=== PATIENT | male | born 1955 | race Hispanic/Latino ===

== ENCOUNTER 2016-08-12 02:34 | Observation (INO) | payer MEDICAID ==
[2016-08-12 02:34] VITALS: PULSE 66
[2016-08-12 02:44] VITALS: BMI 38.2
--- NOTE | 2016-08-12 02:52 | ED PDOC ---
Arrival/HPI - General Time Seen by Provider: 08/12/16 02:35 Historian: Patient, Other (Friend) - History of Present Illness Narrative History of Present Illness (Text): 08/12/16 02:51 Jose Aguillon is a 61 year old male, whose past medical history includes atrial fibrillation (on Xarelto), pneumonia, CHF, hypertension, CAD, and prostate cancer, who presents to the Emergency department brought in by EMS for near- syncope tonight. Patient states he was sitting on the toilet prior to arrival when he began feeling very flushed, dizzy, and near-syncopal. Friend notes patient has been experiencing dyspnea on exertion for the past few days. Patient denies any chest pain, nausea, vomiting, diarrhea, back pain, neck pain , headache, vision changes, focal neurological deficits, trauma/fall, or any other complaints. PMD: Dr. Sarbjit Payne Time/Duration: Prior to Arrival Symptom Onset: Sudden Activities at Onset: Light Context: Sitting, Home Past Medical History - Provider Review Nursing Documentation Reviewed: Yes - Past History Past History: No Previous - Tetanus Immunization Tetanus Immunization: Unknown - Cardiac Hx Cardiac Disorders: Yes Hx Atrial Fibrillation: Yes - Pulmonary Hx Pneumonia: Yes (MAR 2013 AND CHILDHOOD) - Neurological Hx Paralysis: No - Hematological/Oncological Hx Blood Transfusions: No - Musculoskeletal/Rheumatological Hx Musculoskeletal Disorders: No - Psychiatric Hx Emotional Abuse: No Hx Physical Abuse: No Hx Substance Use: No - Surgical History Hx Cardiac Catheterization: Yes (APR 2012 ) Hx Tonsillectomy: Yes (CHILDHOOD) Other/Comment: CARDIAC ABLATION APR 2013 COLONOSCOPY EGD - Anesthesia Hx Anesthesia Reactions: No Hx Malignant Hyperthermia: No - Suicidal Assessment Feels Threatened In Home Enviroment: No Family/Social History - Physician Review Nursing Documentation Reviewed: Yes Family/Social History: No Known Family HX Smoking Status: Never Smoked Hx Alcohol Use: No Hx Substance Use: No Hx Substance Use Treatment: No Allergies/Home Meds Allergies/Adverse Reactions: Allergies Sulfa (Sulfonamide Antibiotics) Allergy (Severe, Verified 05/13/15 09:09) ANAPHYLAXIS Home Medications: Home Meds Medication Instructions Recorded Confirmed Atorvastatin Calcium 40 mg PO DAILY 08/12/16 08/12/16 Carvedilol [Coreg] 25 mg PO BID 08/12/16 08/12/16 Ergocalciferol (Vitamin D2) 50,000 unit PO QWK 08/12/16 08/12/16 [Vitamin D2] Furosemide [Lasix] 20 mg PO 2XW 08/12/16 08/12/16 Lisinopril [Zestril] 40 mg PO DAILY 08/12/16 08/12/16 Rivaroxaban [Xarelto] 20 mg PO DAILY 08/12/16 08/12/16 Review of Systems - Physician Review All systems were reviewed & negative as marked: Yes - Review of Systems Constitutional: Normal. absent: Fevers Eyes: Normal ENT: Normal Cardiovascular: PANDYA, Other (+near-syncopal) Gastrointestinal: Normal. absent: Abdominal Pain, Diarrhea, Nausea, Vomiting Genitourinary Male: Normal. absent: Dysuria, Frequency, Hematuria, Urinary Output Changes Musculoskeletal: Normal. absent: Back Pain, Neck Pain Skin: Normal. absent: Rash Neurological: Dizziness. absent: Headache Endocrine: Normal Hemo/Lymphatic: Normal Psychiatric: Normal Physical Exam Vital Signs Reviewed: Yes Vital Signs Temp Pulse Resp BP Pulse Ox 08/12/16 04:30 73 16 113/64 96 08/12/16 02:43 98 F 70 16 126/56 L 95 Temperature: Afebrile Blood Pressure: Normal Pulse: Regular Respiratory Rate: Normal Appearance: Positive for: Well-Appearing, Non-Toxic, Comfortable Pain Distress: None Mental Status: Positive for: Alert and Oriented X 3 - Systems Exam Head: Present: Atraumatic, Normocephalic Pupils: Present: PERRL Extroacular Muscles: Present: EOMI Conjunctiva: Present: Normal Mouth: Present: Moist Mucous Membranes Neck: Present: Normal Range of Motion Respiratory/Chest: Present: Clear to Auscultation, Good Air Exchange. No: Respiratory Distress, Accessory Muscle Use Cardiovascular: Present: Normal S1, S2, Irregular Rhythm (Irregular, regular). No: Murmurs Abdomen: Present: Normal Bowel Sounds. No: Tenderness, Distention, Peritoneal Signs Back: Present: Normal Inspection Upper Extremity: Present: Normal Inspection. No: Cyanosis, Edema Lower Extremity: Present: Normal Inspection. No: Edema Neurological: Present: GCS=15, CN II-XII Intact, Speech Normal Skin: Present: Warm, Dry, Normal Color. No: Rashes Psychiatric: Present: Alert, Oriented x 3, Normal Insight, Normal Concentration Medical Decision Making ED Course and Treatment: 08/12/16 02:51 Impression: 61 year old male brought in by EMS s/p near-syncopal episode ACCOUNTS RECEIVABLE ASSOCIATE. Differential Diagnosis include but are not limited to: near-syncope vs. ACS vs. electrolyte abnormality vs. atrial fibrillation Plan: -- CT Head w/o contrast -- EKG -- Chest X-ray -- Labs, cardiac enzymes, BNP -- Reassess and disposition Prior Visits: Notes and results from previous visits were reviewed. Progress Notes: Reviewed EKG, a fib at [address]pm[address] LBBB. Non-specific ST/T wave changes. 08/12/16 04:23 Reviewed radiology, Chest X-ray shows no active disease. CT Head shows: No fractures. No intracranial hemorrhage. Clinical correlation for possibility of proptosis. No abnormality suspicious for acute stroke by noncontrast head CT. If there is clinical suspicion for stroke, please note that other modalities are considered to be more sensitive than noncontrast head CT. 08/12/16 04:55 Case discussed with medical coordinator pesticide use educational assistant, who is aware and agrees with plan. Case discussed with Dr. Noyola, who is aware and agrees with plan. Accepts pt in to hospitalist service. Pt will go to Telemetry observation for near-syncope. Pt is no acute distress. Discussed results and hospital observation with pt, who is aware and verbalizes understanding. - Lab Interpretations Lab Results: 08/12/16 03:00 08/12/16 03:00 Lab Results 08/12/16 03:00: WBC 7.8, RBC 5.27, Hgb 15.7, Hct 43.8, MCV 83.1, MCH 29.8, MCHC 35.8, RDW 13.5, Plt Count 199, MPV 10.2, PT 14.0 H, INR 1.30 H, APTT 27.8, Sodium 139, Potassium 3.6, Chloride 103, Carbon Dioxide 22, Anion Gap 18, BUN 14 , Creatinine 0.8, Est GFR ( Amer) > 60, Est GFR (Non-Af Amer) > 60, Random Glucose 133 H, Calcium 9.2, Total Bilirubin 1.5 H, AST 21, ALT 34, Alkaline Phosphatase 78, Lactate Dehydrogenase 362, Total Creatine Kinase 74, Troponin I 0.01, NT-Pro-B Natriuret Pep 1490 H, Total Protein 7.4, Albumin 4.1, Globulin 3.4, Albumin/Globulin Ratio 1.2 I have reviewed the lab results: Yes - RAD Interpretation Narrative RAD Interpretations (Text): Chest X-ray shows no active disease. CT Head shows: Brain: No hemorrhage. Mild periventricular hypoattenuation suggesting white matter disease. No edema. Ventricles: Unremarkable. No ventriculomegaly. Bones/joints: Unremarkable. No acute fracture. Soft tissues: Unremarkable. Sinuses: Unremarkable as visualized. No acute sinusitis. Mastoid air cells: Unremarkable as visualized. No mastoid effusion. Orbits: There is suggestion of bilateral proptosis, please correlate clinically. IMPRESSION: No fractures. No intracranial hemorrhage. Clinical correlation for possibility of proptosis. No abnormality suspicious for acute stroke by noncontrast head CT. If there is clinical suspicion for stroke, please note that other modalities are considered to be more sensitive than noncontrast head CT. Radiology Orders: 08/12/16 02:56 HEAD W/O CONTRAST [CT] Stat 08/12/16 02:57 CHEST PORTABLE [RAD] Stat Consumer Analyst: ED Physician, Radiologist - EKG Interpretation Interpreted by ED Physician: Yes Type: 12 lead EKG - Scribe Statement The provider has reviewed the documentation as recorded by the Raphael Kingsley Provider Attestation: All medical record entries made by the Scribe were at my direction and personally dictated by me. I have reviewed the chart and agree that the record accurately reflects my personal performance of the history, physical exam, medical decision making, and the department course for this patient. I have also personally directed, reviewed, and agree with the discharge instructions and disposition. Disposition/Present on Arrival - Present on Arrival Any Indicators Present on Arrival: No History of DVT/PE: No History of Uncontrolled Diabetes: No Urinary Catheter: No History of Decub. Ulcer: No History Surgical Site Infection Following: None - Disposition Have Diagnosis and Disposition been Completed?: Yes Diagnosis: Near syncope Disposition: HOSPITALIZED Disposition Time: 05:02 Patient Plan: Observation Patient Problems: Current Active Problems Problem Status Diagnosed Near syncope Acute Condition: STABLE Referrals: Dede Payne MD [Primary Care Provider] - Follow up with primary
[2016-08-12 03:29] LABS: HEMATOCRIT 43.8 % (42.0-52.0); MEAN CELL VOLUME 83.1 fL (80.0-105.0); MEAN CORPUSCULAR HEMOGLOBIN 29.8 pg (25.0-35.0); MEAN CORPUSCULAR HGB CONC 35.8 g/dl (31.0-37.0); MEAN PLATELET VOLUME 10.2 fl (7.0-11.0); RED CELL DISTRIBUTION WIDTH 13.5 % (11.5-14.5); WHITE BLOOD COUNT 7.8 10^3/ul (4.5-11.0)
[2016-08-12 03:36] LABS: ALB/GLOB RATIO 1.2 (1.1-1.8); ALKALINE PHOSPHATASE 78 U/L (38-133); ALT/SGPT 34 U/L (7-56); AST/SGOT 21 U/L (15-59); BILIRUBIN,TOTAL 1.5 mg/dL (0.2-1.3); BLOOD UREA NITROGEN 14 mg/dL (7-21); CALCIUM 9.2 mg/dL (8.4-10.5); CARBON DIOXIDE 22 mmol/L (21-33); CHLORIDE 103 mmol/L (98-107); GFR AFRICAN-AMERICAN > 60; GLUCOSE,RANDOM 133 mg/dL (70-110); POTASSIUM 3.6 mmol/L (3.6-5.0); SODIUM 139 mmol/L (132-148); TOTAL PROTEIN 7.4 g/dL (5.8-8.3)
[2016-08-12 03:37] LABS: INR 1.3 (0.93-1.08); PARTIAL THROMBOPLASTIN TIME 27.8 Seconds (23.7-30.8)
[2016-08-12 04:11] LABS: TROPONIN I 0.01 ng/mL
--- NOTE | 2016-08-12 04:22 | CT ---
EXAM: CT Head Without Intravenous Contrast CLINICAL HISTORY: 61 years old, male; Signs and symptoms; Syncope and collapse; Additional info: Near syncope TECHNIQUE: Axial computed tomography images of the head/brain without intravenous contrast. EXAM DATE/TIME: Exam ordered 08/12/2016 2:56 AM COMPARISON: No relevant prior studies available. FINDINGS: Brain: No hemorrhage. Mild periventricular hypoattenuation suggesting white matter disease. No edema. Ventricles: Unremarkable. No ventriculomegaly. Bones/joints: Unremarkable. No acute fracture. Soft tissues: Unremarkable. Sinuses: Unremarkable as visualized. No acute sinusitis. Mastoid air cells: Unremarkable as visualized. No mastoid effusion. Orbits: There is suggestion of bilateral proptosis, please correlate clinically. IMPRESSION: No fractures. No intracranial hemorrhage. Clinical correlation for possibility of proptosis. No abnormality suspicious for acute stroke by noncontrast head CT. If there is clinical suspicion for stroke, please note that other modalities are considered to be more sensitive than noncontrast head CT.
--- NOTE | 2016-08-12 06:01 | CP.PCM.HP ---
<Aixa Quintero - Last Filed: 08/12/16 05:52> History of Present Illness - History of Present Illness History of Present Illness: 61 M with PMHx of Afib (xarelto), CHF ('12: EF - 22%), recurrent PNA, HTN, CAD and prostate ca presents to [facility] with complaints of near syncopal episode. Pt reports at approx 2:30 this morning he went to use the restroom when he began to feel cold, chills, slightly dizzy and facial flushing. He denied straining and denied loc. He was able to ambulate to the living room afterwards and rest at which point he decided to have his friends bring him to the [facility] ED for further evaluation, as he understands he has a strong cardiac history and did not want to take any chances. Total duration of symptoms was approx 3-5 minutes. Pt currently denies any complaints. He denied fever, chills, headaches , dizziness, blurry vision, lightheadedness, sob, chest pains, palpitations, abdominal pains, n/v/d/c or urinary symptoms. PMHx: Afib (xarelto), CHF ('12: EF - 22%), recurrent PNA, HTN, CAD and prostate ca s/p radiation PSHx: Cardiac ablation, colonoscopy, egd, Cardiac cath SHx: Denied tobacco abuse, admits to a 20 yr span of drinking 3-4xweek of 3-4 drinks and quit when dx with cardiac, denied illicit drug use FamHX: Dad from [place] @65yo, also had prostate cancer. Mom: colon cancer Meds: MAR reviewed Allergies: NKDA (he states he doesnt really have sulfa allergy) PMD: Dr. Navjot Payne Director Of Distribution: Dr. Palumbo ([facility]), appt on Urologist: Dr. Garcia Present on Admission - Present on Admission Any Indicators Present on Admission: No History of DVT/PE: No History of Uncontrolled Diabetes: No Urinary Catheter: No Decubitus Ulcer Present: No Review of Systems - Review of Systems Review of Systems: as per HPI otherwise negative Past Patient History - Tetanus Immunizations Tetanus Immunization: Unknown - Past Medical History & Family History Past Medical History?: Yes - Past Social History Smoking Status: Never Smoked - CARDIAC Hx Cardiac Disorders: Yes Hx Atrial Fibrillation: Yes - PULMONARY Hx Pneumonia: Yes (MAR 2013 AND CHILDHOOD) - NEUROLOGICAL Hx Paralysis: No - HEMATOLOGICAL/ONCOLOGICAL Hx Blood Transfusions: No - MUSCULOSKELETAL/RHEUMATOLOGICAL Hx Musculoskeletal Disorders: No - PSYCHIATRIC Hx Emotional Abuse: No Hx Physical Abuse: No Hx Substance Use: No - SURGICAL HISTORY Hx Cardiac Catheterization: Yes (APR 2012 ) Hx Tonsillectomy: Yes (CHILDHOOD) Other/Comment: CARDIAC ABLATION APR 2013 COLONOSCOPY EGD - ANESTHESIA Hx Anesthesia Reactions: No Hx Malignant Hyperthermia: No Meds Allergies/Adverse Reactions: Allergies Allergy/AdvReac Type Severity Reaction Status Date / Time Sulfa (Sulfonamide Allergy Severe ANAPHYLAXIS Verified 08/12/16 11:39 Antibiotics) Physical Exam - Constitutional Appears: Well, No Acute Distress - Head Exam Head Exam: ATRAUMATIC, NORMAL INSPECTION, NORMOCEPHALIC - Eye Exam Eye Exam: EOMI, Normal appearance, PERRL Pupil Exam: NORMAL ACCOMODATION, PERRL - ENT Exam ENT Exam: Mucous Membranes Moist, Normal Exam - Neck Exam Neck exam: Positive for: Normal Inspection - Respiratory Exam Respiratory Exam: Clear to Auscultation Bilateral, NORMAL BREATHING PATTERN - Cardiovascular Exam Cardiovascular Exam: REGULAR RHYTHM, +S1, +S2. absent: JVD - GI/Abdominal Exam GI & Abdominal Exam: Normal Bowel Sounds, Soft. absent: Tenderness - Extremities Exam Extremities exam: Positive for: normal inspection - Back Exam Back exam: NORMAL INSPECTION - Neurological Exam Neurological exam: Alert, CN II-XII Intact, Normal Gait, Oriented x3, Reflexes Normal - Psychiatric Exam Psychiatric exam: Normal Affect, Normal Mood - Skin Skin Exam: Dry, Intact, Normal Color, Warm Results - Vital Signs Recent Vital Signs: Last Vital Signs Temp 98 F 08/12/16 02:43 Pulse 73 08/12/16 04:30 Resp 16 08/12/16 04:30 BP 113/64 08/12/16 04:30 Pulse Ox 96 08/12/16 04:30 - Labs Result Diagrams: 08/12/16 03:00 08/12/16 03:00 Assessment & Plan - Assessment and Plan (Free Text) Assessment: 61 M with PMHx of Afib (xarelto), CHF ('12: EF - 22%), recurrent PNA, HTN, CAD and prostate ca presents to [facility] with complaints of near syncopal episode, [facility] further evaluation considering strong cardiac hx. 1. Near syncope - Hx: Afib, CHF, CAD - EKG: Afib @ 76bpm. LBBB Nonspecific ST changes, compared with previous EKGs - Last EF 21% - Echo, tsh, orthostatics, serial trops, serial ekgs - Cardio consulted, Dr. Cooney 2. HTN - Currently stable - continue home meds - continue to monitor 3. Afib - continue xarelto 4. CHF - Lasix 20mg Wed/Tue - Strict I&Os - daily weights 5. GI ppx 6. Dvt ppx seen reviewed and discussed with attending <Jazmín JAMES,Jomar - Last Filed: 08/13/16 13:59> Results - Vital Signs Recent Vital Signs: Last Vital Signs Temp 98.1 F 08/13/16 05:42 Pulse 88 08/13/16 05:42 Resp 20 08/13/16 05:42 BP 119/58 L 08/13/16 05:42 Pulse Ox 98 08/13/16 05:42 - Labs Result Diagrams: 08/13/16 07:00 08/13/16 07:00 Labs: Laboratory Results - last 24 hr 08/12/16 08/13/16 18:46 07:00 WBC 6.7 RBC 5.38 Hgb 15.7 Hct 45.5 MCV 84.6 MCH 29.2 MCHC 34.5 RDW 13.7 Plt Count 196 MPV 10.4 Gran % 62.7 Lymph % (Auto) 26.3 [place] % (Auto) 9.7 H Eos % (Auto) 1.0 L Baso % (Auto) 0.3 Gran # 4.21 Lymph # 1.8 [place] # 0.7 H Eos # 0.1 Baso # 0.02 Sodium 140 Potassium 4.5 Chloride 102 Carbon Dioxide 27 Anion Gap 16 BUN 14 Creatinine 0.9 Est GFR ( Amer) > 60 Est GFR (Non-Af Amer) > 60 Random Glucose 109 Calcium 9.5 Total Bilirubin 2.0 H AST 22 ALT 35 Alkaline Phosphatase 75 Troponin I < 0.01 D Total Protein 7.7 Albumin 4.2 Globulin 3.4 Albumin/Globulin Ratio 1.2 Attending/Attestation - Attestation I have personally seen and examined this patient.: Yes I have fully participated in the care of the patient.: Yes I have reviewed all pertinent clinical information: Yes
--- NOTE | 2016-08-12 08:22 | RAD ---
HISTORY: near syncope COMPARISON: 05/13/2015 FINDINGS: LUNGS: No active pulmonary disease. PLEURA: No significant pleural effusion identified, no pneumothorax apparent. CARDIOVASCULAR: Normal. OSSEOUS STRUCTURES: No significant abnormalities. VISUALIZED UPPER ABDOMEN: Normal. OTHER FINDINGS: None. IMPRESSION: No active disease.
[2016-08-12] MEDS: Ergocalciferol 50,000 Intl Units Cap PO SCH (10:06)
--- NOTE | 2016-08-12 15:06 | CON ---
DATE: 08/12/2016 REASON FOR CONSULTATION: Atrial fibrillation. HISTORY OF PRESENT ILLNESS: The patient is a 61-year-old white male who has history of chronic atria l fibrillation. He is being followed by a vision teacher in [place]. The patient has been on Xare lto for the past 3 years. He has a history of hypertension and prostatic cancer. He presented becau se of near syncope. The patient stated that he went to use the bathroom after midnight and he felt v urmila flushed and dizzy. The patient denies any fainting. The patient does not recall experiencing pa lpitation or chest pain. SOCIAL HISTORY: The patient is a former smoker. MEDICATIONS: Coreg 25 mg twice a day, Lasix 20 mg p.o. twice a day, Lipitor 40 mg once a day, Proton ix 40 mg subcutaneously once a day, Xarelto 20 mg once a day, Zestril 40 mg p.o. once a day. PHYSICAL EXAMINATION: GENERAL: The patient is a middle-aged male who does not appear to be in any distress. VITAL SIGNS: Blood pressure 122/82, heart rate 92, temperature 98.8, respirations 16. HEENT: Normocephalic. NECK: No JVD. CHEST: Clear. HEART: S1, S2 regular. EXTREMITIES: No edema or calf tenderness. LABORATORY DATA: CBC is within normal limits. INR is 1.3, PTT 27.8. SMA-7 is within normal limits except for glucose of 133. ProBNP is 1490. TSH level is within normal limits. Head CT scan without contrast: No abnormality suspicious of acute stroke. Chest x-ray revealed mild cardiomegaly. EKG revealed atrial fibrillation with a heart rate 76, left bundle branch block. Cardiac catheterization performed in 03/2012 revealed 80% stenosis of the proximal left anterior descending and end-stage ca rdiomyopathy. He was given the option of elective PCI. However, the patient is unaware of any inter vention that was done for his coronary arteries. Two sets of troponins are not elevated. ASSESSMENT: 1. Chronic atrial fibrillation. 2. Cardiomyopathy. 3. History of coronary artery disease. RECOMMENDATIONS: Continue Coreg 25 mg once a day, Lasix 20 mg p.o. twice a day, Lipitor 40 mg once a day, Xarelto 20 mg once a day, Zestril at 40 mg once a day. Obtain an echocardiogram. Giles Cooney MD cc: [id number] TT: 08/12/2016 15:06:32 Confirmation # [id number] Dictation # [id number] rn
--- NOTE | 2016-08-12 15:32 | CARD ---
APPROVED REPORT EKG Measurement Heart [id number] <Conclusion> Atrial fibrillation Left bundle branch block Abnormal ECG
[2016-08-12] MEDS ORDERED: Pneumococcal 23-Valent Vaccine IM ONE (17:20)
[2016-08-12 21:09] VITALS: RESP 20
[2016-08-13 05:42] VITALS: BP 119/58; TEMP 98.1; O2SAT 98
[2016-08-13 07:17] LABS: ADD MANUAL DIFF? NO
[2016-08-13 07:29] LABS: BASO # 0.02 K/mm3 (0.0-2.0); BASO % 0.3 % (0.0-3.0); EOS # 0.1 (0.0-0.7); GRAN # 4.21 (1.4-6.5); GRAN % 62.7 % (50.0-68.0); HEMATOCRIT 45.5 % (42.0-52.0); LYMPH # 1.8 (1.2-3.4); LYMPH % 26.3 % (22.0-35.0); MEAN CELL VOLUME 84.6 fL (80.0-105.0); MEAN CORPUSCULAR HEMOGLOBIN 29.2 pg (25.0-35.0); MEAN CORPUSCULAR HGB CONC 34.5 g/dl (31.0-37.0); MEAN PLATELET VOLUME 10.4 fl (7.0-11.0); MONO # 0.7 (0.1-0.6); MONO % 9.7 % (1.0-6.0); PLATELET COUNT 196 10^3/uL (120.0-450.0); RED CELL DISTRIBUTION WIDTH 13.7 % (11.5-14.5); WHITE BLOOD COUNT 6.7 10^3/ul (4.5-11.0)
[2016-08-13] MEDS ORDERED: Pantoprazole 40 mg EC Tab PO SCH (07:30)
[2016-08-13 07:49] LABS: ALB/GLOB RATIO 1.2 (1.1-1.8); ALKALINE PHOSPHATASE 75 U/L (38-133); ALT/SGPT 35 U/L (7-56); AST/SGOT 22 U/L (15-59); BLOOD UREA NITROGEN 14 mg/dL (7-21); CALCIUM 9.5 mg/dL (8.4-10.5); CARBON DIOXIDE 27 mmol/L (21-33); CHLORIDE 102 mmol/L (95-110); GFR AFRICAN-AMERICAN > 60; GLUCOSE,RANDOM 109 mg/dL (70-110); POTASSIUM 4.5 mmol/L (3.6-5.0); SODIUM 140 mmol/L (132-148); TOTAL PROTEIN 7.7 g/dL (5.8-8.3)
[2016-08-13] MEDS: Ergocalciferol 50,000 Intl Units Cap PO SCH (09:34)
--- NOTE | 2016-08-13 12:43 | CARD ---
APPROVED REPORT EXAM: Two-dimensional and M-mode echocardiogram with Doppler and color Doppler. INDICATION NEAR SYNCOPE 2D DIMENSIONS Left Atrium (2D)4.5 (1.6-4.0cm)IVSd1.4 (0.7-1.1cm) LVDd5.2 (3.9-5.9cm)PWd1.4 (0.7-1.1cm) LVDs4.5 (2.5-4.0cm)FS (%) 12.5 % LVEF (%)26.8 (>50%) M-Mode DIMENSIONS Aortic Root3.00 (2.2-3.7cm)Aortic Cusp Exc.1.50 (1.5-2.0cm) Aortic Valve AoV Peak Rjnjymcj515.0cm/Emilia Peak GR.13mmHg Mitral Valve E/A ratio0.0 TDI E/Lateral E'0.0E/Medial E'0.0 Pulmonary Valve PV Peak Xahmwbtq18.0cm/sPV Peak Grad.2mmHg Tricuspid Valve TR Peak [id number]/sRAP [id number] Peak Gr.47mmHg [id number] LEFT VENTRICLE The Left Ventricle is borderline dilated. There is mild concentric left ventricular hypertrophy. The systolic function is severely impaired. Sever Septal an Apical hypokinesis No left ventricle thrombus noted on this study. RIGHT VENTRICLE The right ventricle is normal size. There is normal right ventricular wall thickness. The right ventricular systolic function is normal. ATRIA The left atrium is moderately dilated. The right atrium is mildly dilated. AORTIC VALVE The aortic valve is not well visualized. No aortic regurgitation is present. MITRAL VALVE The mitral valve is mildly thickened. Mitral regurgitation is moderate. TRICUSPID VALVE There is moderate tricuspid regurgitation. There is moderate pulmonary hypertension. GREAT VESSELS The aortic root is normal in size. The IVC was not visualized. PERICARDIAL EFFUSION There is no pericardial effusion. <Conclusion> The Left Ventricle is borderline dilated. There is mild concentric left ventricular hypertrophy. The systolic function is severely impaired. Sever Septal an Apical hypokinesis There is moderate tricuspid regurgitation. There is moderate pulmonary hypertension. Mitral regurgitation is moderate.
--- NOTE | 2016-08-13 15:52 | CP.PCM.PN ---
<Snehal Mullen - Last Filed: 08/13/16 16:01> Subjective - Date & Time of Evaluation Date of Evaluation: 08/13/16 Time of Evaluation: 08:10 - Subjective Subjective: Pt seen and evaluated at the bedside. Pt denies CP, SWENSON, SOB, abdominal pain, urinary symptoms. Last BM yesterday was without blood and was not diarrhea or constipation. Afebrile overnight. Objective - Vital Signs/Intake and Output Vital Signs (last 24 hours): Temp Pulse Resp BP Pulse Ox 98.1 F 88 20 119/58 L 98 08/13/16 05:42 08/13/16 05:42 08/13/16 05:42 08/13/16 05:42 08/13/16 05:42 Intake and Output: 08/13/16 08/13/16 06:59 18:59 Intake Total 600 1020 Balance 600 1020 - Medications Medications: Current Medications Atorvastatin Calcium (Lipitor) 40 mg PO DAILY [facility] Last Admin: 08/13/16 09:33 Dose: 40 mg Carvedilol (Coreg) 25 mg PO BID [facility] Last Admin: 08/13/16 09:33 Dose: 25 mg Ergocalciferol (Drisdol 50,000 Intl Units Cap) 1 cap PO QWK [facility] Last Admin: 08/13/16 09:34 Dose: 1 cap Furosemide (Lasix) 20 mg PO 2XW [facility] Lisinopril (Zestril) 40 mg PO DAILY [facility] Last Admin: 08/13/16 09:34 Dose: 40 mg Pantoprazole Sodium (Protonix Ec Tab) 40 mg PO ACB [facility] Last Admin: 08/13/16 07:39 Dose: 40 mg Rivaroxaban (Xarelto) 20 mg PO DAILY [facility] PRN Reason: Protocol Last Admin: 08/13/16 09:33 Dose: 20 mg - Labs Labs: 08/13/16 07:00 08/13/16 07:00 PT 14.0 Seconds (9.9-11.8) H 08/12/16 03:00 INR 1.30 (0.93-1.08) H 08/12/16 03:00 APTT 27.8 Seconds (23.7-30.8) 08/12/16 03:00 - Constitutional Appears: Non-toxic, No Acute Distress - Head Exam Head Exam: ATRAUMATIC, NORMOCEPHALIC - Eye Exam Eye Exam: EOMI, Normal appearance - Respiratory Exam Respiratory Exam: Clear to Ausculation Bilateral, NORMAL BREATHING PATTERN - Cardiovascular Exam Cardiovascular Exam: +S1, +S2. absent: Bradycardia - GI/Abdominal Exam GI & Abdominal Exam: Soft. absent: Tenderness - Exam External exam: absent: Ecchymosis, Erythema - Extremities Exam Extremities Exam: Normal Capillary Refill. absent: Tenderness - Neurological Exam Neurological Exam: Alert, Awake - Psychiatric Exam Psychiatric exam: Normal Affect, Normal Mood - Skin Skin Exam: Intact, Normal Color Assessment and Plan - Assessment and Plan (Free Text) Plan: 61 M with PMHx of Afib (xarelto), CHF ('12: EF - 22%), recurrent PNA, HTN, CAD and prostate ca presents [place] [facility] with complaints of near syncopal episode, admitted to tele obs for further evaluation considering strong cardiac hx. 1. Near syncope - Hx: Afib, CHF, CAD - EKG: Afib @ 76bpm. LBBB Nonspecific ST changes, compared with previous EKGs - Last EF 21%, new EF 25% - tsh (wnl), orthostatics positive (sit 146/80, stand 133/101, supine 129/77), trop neg x3 - Cardio consulted, Dr. Cooney -EP study tomorrow 2. HTN - Currently stable - continue home meds - continue to monitor 3. Afib - continue xarelto 4. CHF - Lasix 20mg Wed/Tue - Strict I&Os - daily weights 5. GI ppx 6. Dvt ppx seen reviewed and discussed with attending <Joaquin Coronado - Last Filed: 08/13/16 16:32> Objective - Vital Signs/Intake and Output Vital Signs (last 24 hours): Temp Pulse Resp BP Pulse Ox 98.1 F 88 20 119/58 L 98 08/13/16 05:42 08/13/16 05:42 08/13/16 05:42 08/13/16 05:42 08/13/16 05:42 Intake and Output: 08/13/16 08/13/16 06:59 18:59 Intake Total 600 1020 Balance 600 1020 - Medications Medications: Current Medications Atorvastatin Calcium (Lipitor) 40 mg PO DAILY [facility] Last Admin: 04/21/17 09:33 Dose: 40 mg Carvedilol (Coreg) 25 mg PO BID [facility] Last Admin: 08/13/16 09:33 Dose: 25 mg Ergocalciferol (Drisdol 50,000 Intl Units Cap) 1 cap PO QWK [facility] Last Admin: 08/13/16 09:34 Dose: 1 cap Furosemide (Lasix) 20 mg PO 2XW [facility] Lisinopril (Zestril) 40 mg PO DAILY [facility] Last Admin: 08/13/16 09:34 Dose: 40 mg Pantoprazole Sodium (Protonix Ec Tab) 40 mg PO ACB [facility] Last Admin: 08/13/16 07:39 Dose: 40 mg Rivaroxaban (Xarelto) 20 mg PO DAILY [facility] PRN Reason: Protocol Last Admin: 08/13/16 09:33 Dose: 20 mg - Labs Labs: 08/13/16 07:00 08/13/16 07:00 PT 14.0 Seconds (9.9-11.8) H 08/12/16 03:00 INR 1.30 (0.93-1.08) H 08/12/16 03:00 APTT 27.8 Seconds (23.7-30.8) 08/12/16 03:00 Attending/Attestation - Attestation I have personally seen and examined this patient.: Yes I have fully participated in the care of the patient.: Yes I have reviewed all pertinent clinical information, including history, physical exam and plan: Yes Notes (Text): 08/13/16 16:28 61 year old male with past medical history of CHF, chronic afib, hypertension and CAD who presented after near syncopal episode at home. Cardiac enzymes were negative. Orthostatics were positive. Echocardiogram showed severely impaired systolic function, severe septal and apical hypokinesis, moderate TR/MR , moderate pulmonary hypertension. Case was discussed with Dr. Cooney who has recommended for EP evaluation. He is on xarelto and coreg for chronic afib. Joaquin Coronado MD Hospitalist.
[2016-08-13 17:36] VITALS: PULSE 35
--- NOTE | 2016-08-13 18:33 | PN ---
DATE: 08/13/2016 The patient denies chest pain or dizziness. PHYSICAL EXAMINATION: VITAL SIGNS: Blood pressure 119/58, heart rate 80, respiration 20, and temperature 98.1. There is ____ rapid atrial fibrillation at times up to 150 and 160 beats per minute. CHEST: Clear. HEART: S1, S2 regular. S3 gallop is noted. ABDOMEN: Soft. EXTREMITIES: Trace leg edema. LABORATORIES: Hemoglobin and hematocrit, white count and platelet count are within normal limit. Today's SMA-7 is within normal limit. Total bilirubin is 2.0. Three sets of troponins are within normal limit. Echocardiographic study revealed severely impaired left ventricular systolic function with severe septal and apical hypokinesis, moderate mitral insufficiency and moderate pulmonary hypertension. ASSESSMENT: 1. Cardiomyopathy. 2. Chronic atrial fibrillation. 3. Consider underlying ischemic heart disease. RECOMMENDATIONS: Continue Coreg 25 mg twice a day, Lasix 20 mg once a day, Lipitor at 40 mg once a day, Zestril 40 mg once a day, Xarelto 20 mg once a day. Start Aldactone 25 mg once a day. 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 The case was discussed with Dr. Coronado. Giles Cooney MD cc: [id number] TT: 08/13/2016 18:32:06 Confirmation # [id number] Dictation # [id number] nithya DENNIS
== END 2016-08-13 19:04 | disposition left against medical advice (07) ==
LOC: ED 02:34 → ERH 04:57 → 2RSO 15:25
PROVIDERS: ADMIT Hospitalist; ATTEND Internal Medicine
DX: R55 Syncope and collapse (principal); I48.2 Chronic atrial fibrillation; I11.0 Hypertensive heart disease with heart failure; I50.9 Heart failure, unspecified; I27.2 Other secondary pulmonary hypertension; I25.10 Atherosclerotic heart disease of native coronary artery without angina pectoris; I42.9 Cardiomyopathy, unspecified; Z79.01 Long term (current) use of anticoagulants; Z85.46 Personal history of malignant neoplasm of prostate; Z87.01 Personal history of pneumonia (recurrent); Z92.3 Personal history of irradiation; Z87.891 Personal history of nicotine dependence; Z80.42 Family history of malignant neoplasm of prostate; Z80.0 Family history of malignant neoplasm of digestive organs
CPT/HCPCS: 36415; 70450; 71010; 80053; 82550; 83615; 83880; 84443; 84484; 85025; 85027; 85610; 85730; 93005; 93306; 96374; 97116; 97161; 99285; C9113; G0378; G8978; G8979; G8980

== ENCOUNTER 2016-09-21 11:30 | Emergency (ER) | payer MEDICAID ==
[2016-09-21 11:30] VITALS: PULSE 66
[2016-09-21 11:48] VITALS: BMI 36.5
[2016-09-21 11:51] VITALS: TEMP 98.8
--- NOTE | 2016-09-21 12:20 | ED PDOC ---
Arrival/HPI - General Chief Complaint: Lower Extremity Problem/Injury Time Seen by Provider: 09/21/16 12:15 Historian: Patient - History of Present Illness Narrative History of Present Illness (Text): 09/21/16 12:07 A 61 year old male, whose past medical history includes atrial fibrillation (on Xarelto), pneumonia, CHF, hypertension, CAD, and prostate cancer, presents to the emergency department for evaluation of redness and pain to the right foot. Patient reports yesterday evening he stubbed his foot against the bed, after which he was fine, but this morning he noticed the redness and developed pain. He states he did not see any breakage in the skin after stubbing the foot. He denies any fever, nausea, vomiting, dizziness, headache, or any other complaints at this time. He denies dyspnea or chest pain. PMD: Dr. Payne Time/Duration: Other (12-18 hours) Symptom Onset: Sudden Symptom Course: Unchanged Quality: Other Activities at Onset: Rest Context: Home Past Medical History - Provider Review Nursing Documentation Reviewed: Yes - Past History Past History: No Previous - Tetanus Immunization Tetanus Immunization: Unknown - Cardiac Hx Cardiac Disorders: Yes (CAD) Hx Congestive Heart Failure: Yes Hx Hypertension: Yes - Pulmonary Hx Respiratory Disorders: Yes Hx Pneumonia: Yes ( A CHILD .HAD PNA 5 X) - Neurological Hx Neurological Disorder: No - HEENT Hx HEENT Disorder: No - Renal Hx Renal Disorder: No - Endocrine/Metabolic Hx Endocrine Disorders: No - Hematological/Oncological Hx Blood Disorders: No - Integumentary Hx Dermatological Disorder: No - Musculoskeletal/Rheumatological Hx Musculoskeletal Disorders: Yes Hx Falls: No - Gastrointestinal Hx Gastrointestinal Disorders: No - Genitourinary/Gynecological Hx Genitourinary Disorders: Yes (HYDROCELE) Hx Prostate Problems: Yes (PROSTATE CA WITH 44 T X OF RADIATION) - Psychiatric Hx Psychophysiologic Disorder: No Hx Emotional Abuse: No Hx Physical Abuse: No Hx Substance Use: No - Surgical History Hx Cardiac Catheterization: Yes (APR 2012 ) Other/Comment: CARDIAC ABLATION APR 2013 COLONOSCOPY EGD - Anesthesia Hx Anesthesia Reactions: No Hx Malignant Hyperthermia: No - Suicidal Assessment Feels Threatened In Home Enviroment: No Family/Social History - Physician Review Nursing Documentation Reviewed: Yes Family/Social History: No Known Family HX, Unknown Family HX Smoking Status: Never Smoked Hx Alcohol Use: No Hx Substance Use: No Hx Substance Use Treatment: No Allergies/Home Meds Allergies/Adverse Reactions: Allergies Sulfa (Sulfonamide Antibiotics) Allergy (Severe, Verified 09/21/16 11:48) ANAPHYLAXIS Home Medications: Home Meds Medication Instructions Recorded Confirmed Carvedilol [Coreg] 25 mg PO BID 08/12/16 08/12/16 Ergocalciferol (Vitamin D2) 50,000 unit PO QWK 08/12/16 08/12/16 [Vitamin D2] Review of Systems - Physician Review All systems were reviewed & negative as marked: Yes - Review of Systems Constitutional: absent: Fevers Gastrointestinal: absent: Nausea, Vomiting Musculoskeletal: Other (right foot redness and pain) Neurological: absent: Headache, Dizziness Physical Exam - Physical Exam Narrative Physical Exam (Text): Constitutional: No acute distress. Head: Normocephalic. Atraumatic. Eyes: PERRL. ENT: Moist mucous membranes. Neck: Supple. Cardiovascular: Irregular, Tachycardia Chest: No tenderness. Respiratory: Clear to auscultation bilaterally. GI: Soft. Nontender. Nondistended. Back: No CVA tenderness. Musculoskeletal: Area of erythema to the right medial aspect of the foot with tenderness on palpation, which is blanching but no fluctuance or drainage. DP 2+ . Full range of motion to the right foot and toes. Skin: No rash. Neurologic: Alert, no focal deficit. Vital Signs Reviewed: Yes Vital Signs Temp Pulse Resp BP Pulse Ox 09/21/16 13:44 120 H 18 121/84 99 09/21/16 12:25 136 H 144/93 H 09/21/16 11:48 98.8 F 166 H 16 131/89 97 Temperature: Afebrile Blood Pressure: Normal Pulse: Tachycardic Respiratory Rate: Normal Appearance: Positive for: Well-Appearing, Non-Toxic, Comfortable Pain Distress: None Mental Status: Positive for: Alert and Oriented X 3 Medical Decision Making ED Course and Treatment: 09/21/16 12:07 Impression: A 61 year old male with erythema and pain to the right foot after stubbing it. Differential Diagnosis include but are not limited to: fracture vs cellulitis Plan: -- Right foot X-ray -- Carvedilol -- Reassess and disposition Prior Visits: Notes and results from previous visits were reviewed. The patient last presented to the emergency department on 08/12/16 for evaluation of a near- syncopal episode. Progress Notes: 09/21/16 13:25 Right Foot X-ray: Dictator : John Gupta MD COMPARISON: None. FINDINGS: BONES: Normal. No fracture. JOINTS: Normal. SOFT TISSUES: Normal. OTHER FINDINGS: None. IMPRESSION: Normal right foot radiographs. 09/21/16 13:45 On re-evaluation, the patient is in no acute distress. Patient heart rate below 110, has decreased after being given his home dose carvedilol which the patient states he did not take today. Rapid afib incidentally found in this patient who presented for toe pain and cellulitis. I have discussed the results and plan with the patient, who expresses understanding. Patient in agreement with plan to discharged home. Patient is stable for discharge. Patient was instructed to follow up with physician/clinic in 1-2 days or return if symptoms worsen or new concerning symptoms arise. - RAD Interpretation Radiology Orders: 09/21/16 12:15 FOOT RIGHT 3 VIEWS ROUTINE [RAD] Stat - Medication Orders Current Medication Orders: Discontinued Medications Carvedilol (Coreg) 25 mg PO STAT STA Stop: 09/21/16 12:16 Last Admin: 09/21/16 12:25 Dose: 25 mg - Scribe Statement The provider has reviewed the documentation as recorded by the Raphael Valdez Provider Scribe Attestation: All medical record entries made by the Scribe were at my direction and personally dictated by me. I have reviewed the chart and agree that the record accurately reflects my personal performance of the history, physical exam, medical decision making, and the department course for this patient. I have also personally directed, reviewed, and agree with the discharge instructions and disposition. Disposition/Present on Arrival - Present on Arrival Any Indicators Present on Arrival: No History of DVT/PE: No History of Uncontrolled Diabetes: No Urinary Catheter: No History of Decub. Ulcer: No History Surgical Site Infection Following: None - Disposition Have Diagnosis and Disposition been Completed?: Yes Diagnosis: Cellulitis Disposition: HOME/ ROUTINE Disposition Time: 13:45 Patient Plan: Discharge Condition: STABLE Discharge Instructions (ExitCare): Cellulitis (ED) Prescriptions: Doxycycline Monohydrate 100 mg PO BID #20 tablet Referrals: [facility] Wendy Ardon, [Non-Staff] - Follow up with primary
--- NOTE | 2016-09-21 13:43 | RAD ---
PROCEDURE: Right Foot Radiographs. HISTORY: medial pain, erythema COMPARISON: None. FINDINGS: BONES: Normal. No fracture. JOINTS: Normal. SOFT TISSUES: Normal. OTHER FINDINGS: None. IMPRESSION: Normal right foot radiographs.
[2016-09-21 13:44] VITALS: BP 121/84; PULSE 120; RESP 18; O2SAT 99
--- NOTE | 2016-09-22 01:33 | CARD ---
APPROVED REPORT EKG Measurement Heart [id number] <Conclusion> Atrial fibrillation with rapid ventricular response Left axis deviation Left bundle branch block Abnormal ECG
== END 2016-09-21 14:08 | disposition home or self-care (01) ==
LOC: ED 11:30
DX: L03.115 Cellulitis of right lower limb (principal); I10 Essential (primary) hypertension; I48.91 Unspecified atrial fibrillation; Z85.46 Personal history of malignant neoplasm of prostate; I25.10 Atherosclerotic heart disease of native coronary artery without angina pectoris; Z79.01 Long term (current) use of anticoagulants

== ENCOUNTER 2017-03-09 00:16 | Observation (INO) | payer MEDICAID ==
[2017-03-09 00:17] VITALS: PULSE 75; BMI 37.1
--- NOTE | 2017-03-09 00:48 | ED PDOC ---
Arrival/HPI - General Chief Complaint: Abnormal Labs Time Seen by Provider: 03/09/17 00:22 Historian: Patient - History of Present Illness Narrative History of Present Illness (Text): 03/09/17 00:47 A 62 year old male, whose past medical history includes CHF, CAD, hypertension, prostate cancer and A fib pacemaker placement, presents to the emergency department for possible elevated INR levels. Patient was seen in the emergency department four days ago for noted elevated INR levels, for which he was admitted and given ffp and vit k. Patient was kept in the hospital until level dropped. Was restarted on lower dose, once his levels came down and was discharged and advised for follow up with PMD. Patient states today he had level repeated, which showed to be elevated once again, was advised to come to the emergency department. Denies any complaints at this time and states he feels fine. Denies any bleeding, no bleeding from gums. PMD: Dr. Jordan Medications: Coumadin Symptom Onset: Sudden Symptom Course: Unchanged Activities at Onset: Rest Context: Home Past Medical History - Provider Review Nursing Documentation Reviewed: Yes - Past History Past History: No Previous - Infectious Disease Hx of Infectious Diseases: None - Tetanus Immunization Tetanus Immunization: Unknown - Cardiac Hx Cardiac Disorders: Yes (CAD) Hx Atrial Fibrillation: Yes Hx Cardiac Arrhythmia: Yes Hx Congestive Heart Failure: Yes Hx Hypertension: Yes Hx Internal Defibrillator: Yes Hx Pacemaker: Yes - Pulmonary Hx Respiratory Disorders: Yes Hx Pneumonia: Yes ( A CHILD .HAD PNA 5 X) - Neurological Hx Neurological Disorder: No - HEENT Hx HEENT Disorder: No - Renal Hx Renal Disorder: No - Endocrine/Metabolic Hx Endocrine Disorders: No - Hematological/Oncological Hx Blood Disorders: No - Integumentary Hx Dermatological Disorder: No - Musculoskeletal/Rheumatological Hx Musculoskeletal Disorders: Yes Hx Falls: No - Gastrointestinal Hx Gastrointestinal Disorders: No - Genitourinary/Gynecological Hx Genitourinary Disorders: Yes (HYDROCELE) Hx Prostate Problems: Yes (PROSTATE CA WITH 44 T X OF RADIATION) - Psychiatric Hx Psychophysiologic Disorder: No Hx Emotional Abuse: No Hx Physical Abuse: No Hx Substance Use: No - Surgical History Hx Cardiac Catheterization: Yes (APR 2012 ) Hx Open Heart Surgery: Yes (pacemaker 3 weeks ago) Other/Comment: CARDIAC ABLATION APR 2013 COLONOSCOPY EGD - Anesthesia Hx Anesthesia Reactions: No Hx Malignant Hyperthermia: No - Suicidal Assessment Feels Threatened In Home Enviroment: No Family/Social History - Physician Review Nursing Documentation Reviewed: Yes Family/Social History: No Known Family HX Smoking Status: Never Smoked Hx Alcohol Use: No Hx Substance Use: No Hx Substance Use Treatment: No Allergies/Home Meds Allergies/Adverse Reactions: Allergies Sulfa (Sulfonamide Antibiotics) Allergy (Severe, Verified 03/09/17 00:27) ANAPHYLAXIS Home Medications: Home Meds Medication Instructions Recorded Confirmed Carvedilol [Coreg] 25 mg PO BID 08/12/16 03/09/17 Atorvastatin [Lipitor] 10 mg PO ONCE 03/09/17 03/09/17 Lisinopril [Zestril] 10 mg PO ONCE 03/09/17 03/09/17 Spironolactone [Aldactone] 25 mg PO ONCE 03/09/17 03/09/17 Review of Systems - Physician Review All systems were reviewed & negative as marked: Yes - Review of Systems Constitutional: absent: Fevers Neurological: absent: Headache, Dizziness Physical Exam Vital Signs Reviewed: Yes Vital Signs Temp Pulse Resp BP Pulse Ox 03/09/17 00:25 97.4 F L 75 17 114/70 98 Temperature: Afebrile Blood Pressure: Normal Pulse: Regular Respiratory Rate: Normal Appearance: Positive for: Well-Appearing, Non-Toxic, Comfortable Pain Distress: None Mental Status: Positive for: Alert and Oriented X 3 - Systems Exam Head: Present: Atraumatic, Normocephalic Pupils: Present: PERRL Extroacular Muscles: Present: EOMI Conjunctiva: Present: Normal Mouth: Present: Moist Mucous Membranes Neck: Present: Normal Range of Motion Respiratory/Chest: Present: Clear to Auscultation, Good Air Exchange. No: Respiratory Distress, Accessory Muscle Use Cardiovascular: Present: Irregular Rhythm Abdomen: Present: Normal Bowel Sounds. No: Tenderness, Distention, Peritoneal Signs Back: Present: Normal Inspection Upper Extremity: Present: Normal Inspection. No: Cyanosis, Edema Lower Extremity: Present: Normal Inspection. No: Edema Neurological: Present: GCS=15, CN II-XII Intact, Speech Normal Skin: Present: Warm, Dry, Normal Color. No: Rashes Psychiatric: Present: Alert, Oriented x 3, Normal Insight, Normal Concentration Medical Decision Making ED Course and Treatment: 03/09/17 00:46 Impression: A 62 year old male with elevated INR levels. Plan: -- labs -- Reassess and disposition Prior Visits: Notes and results from previous visits were reviewed. Patient was last seen in the emergency department on 03/04/17 for evaluation of elevated INR levels. Progress Notes: 03/09/17 01:[address] Sullivan, who accepts patient to be admitted for observation to [facility]. - Lab Interpretations Lab Results: 03/09/17 00:50 03/09/17 00:50 Lab Results 03/09/17 00:50: WBC 7.0 D, RBC 4.92, Hgb 14.7, Hct 42.0, MCV 85.4, MCH 29.9, MCHC 35.0, RDW 12.7, Plt Count 218, MPV 10.0 03/09/17 00:50: Sodium 140, Potassium 4.1, Chloride 104, Carbon Dioxide 26, Anion Gap 14, BUN 15, Creatinine 0.9, Est GFR ( Amer) > 60, Est GFR (Non- Af Amer) > 60, Random Glucose 118 H, Calcium 9.6, Total Bilirubin 0.9, AST 27, ALT 31, Alkaline Phosphatase 72, Total Protein 7.4, Albumin 4.2, Globulin 3.2, Albumin/Globulin Ratio 1.3 03/09/17 00:50: PT 144.7 H, INR 12.61 H*, APTT 73.4 H I have reviewed the lab results: Yes - Medication Orders Current Medication Orders: Carvedilol (Coreg) 25 mg PO BID [facility] Pantoprazole Sodium (Protonix Ec Tab) 40 mg PO 0600 [facility] Discontinued Medications Phytonadione (Vitamin K Tab) 5 mg PO ONCE ONE Stop: 03/09/17 01:26 Last Admin: 03/09/17 01:47 Dose: 5 mg - Scribe Statement The provider has reviewed the documentation as recorded by the Raphael Clifford Provider Scribe Attestation: All medical record entries made by the Tinaibfinesse were at my direction and personally dictated by me. I have reviewed the chart and agree that the record accurately reflects my personal performance of the history, physical exam, medical decision making, and the department course for this patient. I have also personally directed, reviewed, and agree with the discharge instructions and disposition. Disposition/Present on Arrival - Present on Arrival Any Indicators Present on Arrival: No History of DVT/PE: No History of Uncontrolled Diabetes: No Urinary Catheter: No History of Decub. Ulcer: No History Surgical Site Infection Following: None - Disposition Have Diagnosis and Disposition been Completed?: Yes Diagnosis: Supratherapeutic INR Disposition: HOSPITALIZED Disposition Time: 01:53 Patient Plan: Observation Patient Problems: Current Active Problems Problem Status Onset Supratherapeutic INR Acute Condition: STABLE Referrals: Dede Payne MD [Primary Care Provider] - Follow up with primary Forms: Publer (Japanese)
[2017-03-09 01:06] LABS: MEAN CELL VOLUME 85.4 fl (80.0-105.0); MEAN CORPUSCULAR HEMOGLOBIN 29.9 pg (25.0-35.0); RED CELL DISTRIBUTION WIDTH 12.7 % (11.5-14.5)
[2017-03-09 01:21] LABS: INR 12.61 (0.93-1.08); PARTIAL THROMBOPLASTIN TIME 73.4 Seconds (25.1-36.5)
[2017-03-09 01:25] LABS: ALB/GLOB RATIO 1.3 (1.1-1.8); ALKALINE PHOSPHATASE 72 U/L (38-126); ALT/SGPT 31 U/L (7-56); AST/SGOT 27 U/L (17-59); BILIRUBIN,TOTAL 0.9 mg/dL (0.2-1.3); BLOOD UREA NITROGEN 15 mg/dL (7-21); CALCIUM 9.6 mg/dL (8.4-10.5); CARBON DIOXIDE 26 mmol/L (21-33); CHLORIDE 104 mmol/L (98-107); GFR AFRICAN-AMERICAN > 60; GLUCOSE,RANDOM 118 mg/dL (70-110); POTASSIUM 4.1 mmol/L (3.6-5.0); SODIUM 140 mmol/L (132-148); TOTAL PROTEIN 7.4 g/dL (5.8-8.3)
--- NOTE | 2017-03-09 02:17 | CP.PCM.HP ---
<Dafne Fofana - Last Filed: 03/09/17 02:30> History of Present Illness - History of Present Illness History of Present Illness: CC: "My INR is high" HPI: Patient is a 62 year old male with past medical history of CHF (last EF 27% ), a fib s/p pacemaker placement, HTN, CAD, prostate CA presents to the ED for evaluation of INR levels. Patient was recently admitted on 03/04/17 for supratherapeutic INR and was treated with Vitamin K and FFP. Was discharged on 3mg of Coumadin to start on Tuesday03/06/17. Patient states that he took half of the 6mg Coumadin tablet he had at home on both Tuesday and Tuesday. When he went to [facility] to check INR today, he was told to go to the ER. Offers no complaints at this time. Denies headaches, dizziness, cp, palpitations , sob, abdominal pain, changes in bowel habits, melena, hematochezia, hematuria , urinary symptoms. Patient states that he was on xarelto for afib in the past however was started on coumadin after pacemaker placement. ED course: Vitamin K 5mg x 1, 2 units of FFP ordered PMD: Dr Jordan Cardiology: Dr. Flores, Dr Sultan Palumbo Allergies: Sulfa Medications: Coumadin 3mg daily, Lisinopril 20mg, Lipitor 10mg, Digoxin, Lasix 20mg 2x/week, Coreg 25 mg BID Medical Hx: CHF, CAD, Afib, HTN, prostate CA s/p radiation, Hydrocele Surgical Hx: Pacemaker placement 3 weeks ago, cardiac cath (no stents) Social Hx: Denies alcohol, tobacco, drug use; lives alone Family Hx: Denies Present on Admission - Present on Admission Any Indicators Present on Admission: No Review of Systems - Review of Systems All systems: reviewed and no additional remarkable complaints except - Constitutional Constitutional: absent: Chills, Fever - EENT Eyes: absent: Blurred Vision, Change in Vision Ears: absent: Dizziness Nose/Mouth/Throat: absent: Epistaxis - Cardiovascular Cardiovascular: absent: Chest Pain, Dyspnea, Edema, Lightheadedness, Palpitations - Respiratory Respiratory: absent: Cough, Dyspnea, Wheezing - Gastrointestinal Gastrointestinal: absent: Abdominal Pain, Bloating, Constipation, Cramping, Diarrhea, Dysphagia, Hematemesis, Hematochezia, Nausea, Vomiting - Genitourinary Genitourinary: absent: Dysuria, Hematuria - Musculoskeletal Musculoskeletal: absent: Back Pain, Numbness, Tingling - Neurological Neurological: absent: Dizziness, Numbness, Headaches, Tingling, Weakness Past Patient History - Infectious Disease Hx of Infectious Diseases: None - Tetanus Immunizations Tetanus Immunization: Unknown - Past Medical History & Family History Past Medical History?: Yes - Past Social History Smoking Status: Never Smoked - CARDIAC Hx Cardiac Disorders: Yes (CAD) Hx Atrial Fibrillation: Yes Hx Cardia Arrhythmia: Yes Hx Congestive Heart Failure: Yes Hx Hypertension: Yes Hx Internal Defibrillator: Yes Hx Pacemaker: Yes - PULMONARY Hx Respiratory Disorders: Yes Hx Pneumonia: Yes ( A CHILD .HAD PNA 5 X) - NEUROLOGICAL Hx Neurological Disorder: No - HEENT Hx HEENT Problems: No - RENAL Hx Chronic Kidney Disease: No - ENDOCRINE/METABOLIC Hx Endocrine Disorders: No - HEMATOLOGICAL/ONCOLOGICAL Hx Blood Disorders: No - INTEGUMENTARY Hx Dermatological Problems: No - MUSCULOSKELETAL/RHEUMATOLOGICAL Hx Musculoskeletal Disorders: Yes Hx Falls: No - GASTROINTESTINAL Hx Gastrointestinal Disorders: No - GENITOURINARY/GYNECOLOGICAL Hx Genitourinary Disorders: Yes (HYDROCELE) Hx Prostate Problems: Yes (PROSTATE CA WITH 44 T X OF RADIATION) - PSYCHIATRIC Hx Psychophysiologic Disorder: No Hx Emotional Abuse: No Hx Physical Abuse: No Hx Substance Use: No - SURGICAL HISTORY Hx Cardiac Catheterization: Yes (APR 2012 ) Hx Open Heart Surgery: Yes (pacemaker 3 weeks ago) Other/Comment: CARDIAC ABLATION APR 2013 COLONOSCOPY EGD - ANESTHESIA Hx Anesthesia Reactions: No Hx Malignant Hyperthermia: No Meds Allergies/Adverse Reactions: Allergies Allergy/AdvReac Type Severity Reaction Status Date / Time Sulfa (Sulfonamide Allergy Severe ANAPHYLAXIS Verified 03/09/17 00:27 Antibiotics) Physical Exam - Constitutional Appears: Well, No Acute Distress - Head Exam Head Exam: ATRAUMATIC, NORMAL INSPECTION - Eye Exam Eye Exam: EOMI, Normal appearance Pupil Exam: NORMAL ACCOMODATION, PERRL - ENT Exam ENT Exam: Mucous Membranes Moist - Neck Exam Neck exam: Positive for: Full Rom - Respiratory Exam Respiratory Exam: Clear to Auscultation Bilateral, NORMAL BREATHING PATTERN. absent: Rales, Rhonchi, Wheezes - Cardiovascular Exam Cardiovascular Exam: Irregular Rhythm, +S1, +S2. absent: Systolic Murmur - GI/Abdominal Exam GI & Abdominal Exam: Normal Bowel Sounds, Soft. absent: Guarding, Rebound, Rigid, Tenderness - Extremities Exam Extremities exam: Positive for: normal inspection, pedal pulses present. Negative for: calf tenderness - Back Exam Back exam: NORMAL INSPECTION - Neurological Exam Neurological exam: Alert, Normal Gait, Oriented x3 - Psychiatric Exam Psychiatric exam: Normal Affect, Normal Mood - Skin Skin Exam: Dry, Normal Color, Warm Results - Vital Signs Recent Vital Signs: Last Vital Signs Temp 97.4 F L 03/09/17 00:25 Pulse 75 03/09/17 00:25 Resp 17 03/09/17 00:25 BP 114/70 03/09/17 00:25 Pulse Ox 98 03/09/17 00:25 - Labs Result Diagrams: 03/09/17 00:50 03/09/17 00:50 Assessment & Plan - Assessment and Plan (Free Text) Assessment: 62 year old male with past medical history of CHF, a fib s/p pacemaker placement , HTN, CAD, prostate CA presents to the ED for evaluation of INR levels. Plan: 1. Supratherapeutic INR -Stable, afebrile -Place on observation -INR on admission was 12.6 -Received Vitamin K in the ED -2 units of FFP ordered -F/U am coags, labs -Hold Coumadin at this time -No active signs of bleeding at this time -Bleeding precautions 2. History of Afib s/p pacemaker -Pacemaker was placed 3 weeks ago at [facility] -Continue Digoxin 0.125mg daily -Continue Coreg 25mg BID 3. History of Hypertension -Continue Lisinopril 20mg daily 4. History of CHF -Last EF 27% on 07/2016 -Continue Aldactone 25mg daily -Daily weights -Strict I/Os 5. History of Non-obstructive CAD -Continue Lipitor 10mg GI/DVT ppx -Protonix 40mg PO -SCDs Plan d/w attending, Dr Sullivan <Shola Sullivan - Last Filed: 03/09/17 05:56> Results - Vital Signs Recent Vital Signs: Last Vital Signs Temp 98.1 F 03/09/17 03:41 Pulse 72 03/09/17 03:41 Resp 03/09/17 03:41 BP 100/69 03/09/17 03:41 Pulse Ox 96 03/09/17 03:41 - Labs Result Diagrams: 03/09/17 00:50 03/09/17 00:50 Attending/Attestation - Attestation I have personally seen and examined this patient.: Yes I have fully participated in the care of the patient.: Yes I have reviewed all pertinent clinical information: Yes Notes (Text): 03/09/17 05:54 Patient was seen when he was in room # 563-02. Agree with history , physical examination, assessment and plan. Following should be added.FH: positive for colon cancer (mother), prostate cancer (father).Had PNA x2 , NE x2.
[2017-03-09 02:28] VITALS: O2SAT 96
[2017-03-09 03:42] VITALS: RESP 17
[2017-03-09] MEDS ORDERED: Pantoprazole 40 mg EC Tab PO SCH (06:00)
[2017-03-09 07:06] VITALS: TEMP 97.6
[2017-03-09 07:27] LABS: BASO # 0.03 K/mm3 (0.0-2.0); BASO % 0.4 % (0.0-3.0); EOS # 0.1 (0.0-0.7); GRAN # 6.01 (1.4-6.5); GRAN % 73.8 % (50.0-68.0); HEMATOCRIT 41.8 % (42.0-52.0); LYMPH # 1.6 (1.2-3.4); LYMPH % 19.9 % (22.0-35.0); MEAN CORPUSCULAR HEMOGLOBIN 29.9 pg (25.0-35.0); MEAN CORPUSCULAR HGB CONC 35.2 g/dl (31.0-37.0); MEAN PLATELET VOLUME 9.8 fl (7.0-11.0); MONO # 0.4 (0.1-0.6); MONO % 4.9 % (1.0-6.0); RED CELL DISTRIBUTION WIDTH 12.8 % (11.5-14.5); WHITE BLOOD COUNT 8.1 10^3/ul (4.5-11.0)
[2017-03-09 07:46] LABS: PARTIAL THROMBOPLASTIN TIME 59.8 Seconds (25.1-36.5)
[2017-03-09 07:49] LABS: INR 4.19 (0.93-1.08)
[2017-03-09 09:53] VITALS: BP 120/75; PULSE 80
--- NOTE | 2017-03-09 11:38 | CP.PCM.DIS ---
<Cristian Ortez - Last Filed: 03/09/17 11:34> Provider - Provider Date of Admission: 03/09/17 01:53 Attending physician: Jeanette De Jesus MD Primary care physician: Rambo Jordan MD Time Spent in preparation of Discharge (in minutes): 45 Hospital Course - Lab Results Lab Results: Most Recent Lab Values WBC 8.1 10^3/ul (4.5-11.0) 03/09/17 07:15 RBC 4.92 10^6/uL (3.5-6.1) 03/09/17 07:15 Hgb 14.7 g/dL (14.0-18.0) 03/09/17 07:15 Hct 41.8 % (42.0-52.0) L 03/09/17 07:15 MCV 85.0 fl (80.0-105.0) 03/09/17 07:15 MCH 29.9 pg (25.0-35.0) 03/09/17 07:15 MCHC 35.2 g/dl (31.0-37.0) 03/09/17 07:15 RDW 12.8 % (11.5-14.5) 03/09/17 07:15 Plt Count 217 10^3/uL (120.0-450.0) 03/09/17 07:15 MPV 9.8 fl (7.0-11.0) 03/09/17 07:15 Gran % 73.8 % (50.0-68.0) H 03/09/17 07:15 Lymph % (Auto) 19.9 % (22.0-35.0) L 03/09/17 07:15 [place] % (Auto) 4.9 % (1.0-6.0) 03/09/17 07:15 Eos % (Auto) 1.0 % (1.5-5.0) L 03/09/17 07:15 Baso % (Auto) 0.4 % (0.0-3.0) 03/09/17 07:15 Gran # 6.01 (1.4-6.5) 03/09/17 07:15 Lymph # 1.6 (1.2-3.4) 03/09/17 07:15 [place] # 0.4 (0.1-0.6) 03/09/17 07:15 Eos # 0.1 (0.0-0.7) 03/09/17 07:15 Baso # 0.03 K/mm3 (0.0-2.0) 03/09/17 07:15 PT 47.4 SECONDS (9.4-12.5) H 03/09/17 07:15 INR 4.19 (0.93-1.08) H* 03/09/17 07:15 APTT 59.8 Seconds (25.1-36.5) H 03/09/17 07:15 Sodium 140 mmol/L (132-148) 03/09/17 00:50 Potassium 4.1 mmol/L (3.6-5.0) 03/09/17 00:50 Chloride 104 mmol/L (98-107) 03/09/17 00:50 Carbon Dioxide 26 mmol/L (21-33) 03/09/17 00:50 Anion Gap 14 (10-20) 03/09/17 00:50 BUN 15 mg/dL (7-21) 03/09/17 00:50 Creatinine 0.9 mg/dl (0.8-1.5) 03/09/17 00:50 Est GFR ( Amer) > 60 03/09/17 00:50 Est GFR (Non-Af Amer) > 60 03/09/17 00:50 Random Glucose 118 mg/dL (70-110) H 03/09/17 00:50 Calcium 9.6 mg/dL (8.4-10.5) 03/09/17 00:50 Total Bilirubin 0.9 mg/dL (0.2-1.3) 03/09/17 00:50 AST 27 U/L (17-59) 03/09/17 00:50 ALT 31 U/L (7-56) 03/09/17 00:50 Alkaline Phosphatase 72 U/L (38-126) 03/09/17 00:50 Total Protein 7.4 g/dL (5.8-8.3) 03/09/17 00:50 Albumin 4.2 g/dL (3.0-4.8) 03/09/17 00:50 Globulin 3.2 gm/dL 03/09/17 00:50 Albumin/Globulin Ratio 1.3 (1.1-1.8) 03/09/17 00:50 Blood Type O POSITIVE 03/09/17 01:37 Antibody Screen Negative 03/09/17 01:37 BBK History Checked Patient has bt 03/09/17 01:37 - Hospital Course Hospital Course: Patient is a 62 year old male with past medical history of CHF (last EF 27%), a fib s/p pacemaker placement, HTN, CAD, prostate CA presented due to elevated INR. Patient was recently admitted on 03/04/17 for supratherapeutic INR and was treated with Vitamin K and FFP. Was discharged on 3mg of Coumadin to start on Tuesday03/06/17. Patient stated that he took half of the 6mg Coumadin tablet he had at home on both Tuesday and Tuesday. When he went to [facility] to check INR, he was told to go to the ER. Patient's INR was 12.61 on admission. Patient was given Vitamin K and FFP, which decreased INR to 4.[address] Flores, patient's residential collections was contacted. He recommended that Coumadin should be stopped and that the patient should have repeat INR done in his office next week. The patient was informed of Dr. Flores's recommendations and agreed. Patient was discharged and advised to resume all other medications, except for coumadin. Discharge Exam - Head Exam Head Exam: ATRAUMATIC, NORMAL INSPECTION - Eye Exam Eye Exam: EOMI, Normal appearance, PERRL - ENT Exam ENT Exam: Mucous Membranes Moist - Neck Exam Neck exam: Full Rom - Respiratory Exam Respiratory Exam: Clear to PA & Lateral. absent: Accessory Muscle Use, Rales, Rhonchi, Wheezes, Respiratory Distress - Cardiovascular Exam Cardiovascular Exam: RRR, +S1, +S2. absent: Diastolic murmur, Gallop, Rubs, Systolic Murmur Additional comments: No signs of hematoma on left chest wall at site of AICD - GI/Abdominal Exam GI & Abdominal Exam: Soft. absent: Distended, Guarding, Rebound, Tenderness - Extremities Exam Extremities exam: normal inspection - Back Exam Back exam: NORMAL INSPECTION - Neurological Exam Neurological exam: Alert, Oriented x3 - Psychiatric Exam Psychiatric exam: Normal Affect, Normal Mood - Skin Skin Exam: Dry, Intact, Normal Color, Warm Discharge Plan - Follow Up Plan Condition: STABLE Disposition: HOME/ ROUTINE Instructions: Atrial Fibrillation (DC), Pacemaker (DC), Vitamin K in Foods (DC) , Elevated INR (DC) Additional Instructions: 1. Follow up with Senior Shipping Clerk on Tuesday or Tuesday for repeat INR 2. Stop Coumadin as instructed by Dr. Flores 3. Resume all other medications as prescribed 4. If symptoms worsen, return to ED Referrals: Rambo Jordan MD [Primary Care Provider] - <Jeanette De Jesus - Last Filed: 03/09/17 17:35> Provider - Provider Date of Admission: 03/09/17 01:53 Attending physician: Jeanette De Jesus MD Primary care physician: Rambo Jordan MD Hospital Course - Lab Results Lab Results: Most Recent Lab Values WBC 8.1 10^3/ul (4.5-11.0) 03/09/17 07:15 RBC 4.92 10^6/uL (3.5-6.1) 03/09/17 07:15 Hgb 14.7 g/dL (14.0-18.0) 03/09/17 07:15 Hct 41.8 % (42.0-52.0) L 03/09/17 07:15 MCV 85.0 fl (80.0-105.0) 03/09/17 07:15 MCH 29.9 pg (25.0-35.0) 03/09/17 07:15 MCHC 35.2 g/dl (31.0-37.0) 03/09/17 07:15 RDW 12.8 % (11.5-14.5) 03/09/17 07:15 Plt Count 217 10^3/uL (120.0-450.0) 03/09/17 07:15 MPV 9.8 fl (7.0-11.0) 03/09/17 07:15 Gran % 73.8 % (50.0-68.0) H 03/09/17 07:15 Lymph % (Auto) 19.9 % (22.0-35.0) L 03/09/17 07:15 [place]t % (Auto) 4.9 % (1.0-6.0) 03/09/17 07:15 Eos % (Auto) 1.0 % (1.5-5.0) L 03/09/17 07:15 Baso % (Auto) 0.4 % (0.0-3.0) 03/09/17 07:15 Gran # 6.01 (1.4-6.5) 03/09/17 07:15 Lymph # 1.6 (1.2-3.4) 03/09/17 07:15 [place]t # 0.4 (0.1-0.6) 03/09/17 07:15 Eos # 0.1 (0.0-0.7) 03/09/17 07:15 Baso # 0.03 K/mm3 (0.0-2.0) 03/09/17 07:15 PT 47.4 SECONDS (9.4-12.5) H 03/09/17 07:15 INR 4.19 (0.93-1.08) H* 03/09/17 07:15 APTT 59.8 Seconds (25.1-36.5) H 03/09/17 07:15 Sodium 140 mmol/L (132-148) 03/09/17 07:15 Potassium 4.3 mmol/L (3.6-5.0) 03/09/17 07:15 Chloride 104 mmol/L (98-107) 03/09/17 07:15 Carbon Dioxide 24 mmol/L (21-33) 03/09/17 07:15 Anion Gap 16 (10-20) 03/09/17 07:15 BUN 11 mg/dL (7-21) 03/09/17 07:15 Creatinine 0.8 mg/dl (0.8-1.5) 03/09/17 07:15 Est GFR ( Amer) > 60 03/09/17 07:15 Est GFR (Non-Af Amer) > 60 03/09/17 07:15 Random Glucose 117 mg/dL (70-110) H 03/09/17 07:15 Calcium 9.7 mg/dL (8.4-10.5) 03/09/17 07:15 Total Bilirubin 0.9 mg/dL (0.2-1.3) 03/09/17 00:50 AST 27 U/L (17-59) 03/09/17 00:50 ALT 31 U/L (7-56) 03/09/17 00:50 Alkaline Phosphatase 72 U/L (38-126) 03/09/17 00:50 Total Protein 7.4 g/dL (5.8-8.3) 03/09/17 00:50 Albumin 4.2 g/dL (3.0-4.8) 03/09/17 00:50 Globulin 3.2 gm/dL 03/09/17 00:50 Albumin/Globulin Ratio 1.3 (1.1-1.8) 03/09/17 00:50 Blood Type O POSITIVE 03/09/17 01:37 Antibody Screen Negative 03/09/17 01:37 BBK History Checked Patient has bt 03/09/17 01:37 Attending/Attestation - Attestation I have personally seen and examined this patient.: Yes I have fully participated in the care of the patient.: Yes I have reviewed all pertinent clinical information, including history, physical exam and plan: Yes Notes (Text): 03/09/17 17:33 Patient was seen and examined with medical sales representative. Agreed with resident assessment and plan. Patient INR has come down to 4.2.There is no evience of bleeding.Hemoglobin is stable.His case was discussed with his residential collections by medical sales representative who has recommended to hold warfarin and patient will follow up with him and has repeat INR checked. The risk and benefit of anticoagulation was discussed in detail with him. Management plan was discussed in detail with patient Education was provided.
[2017-03-09 12:09] LABS: BLOOD UREA NITROGEN 11 mg/dL (7-21); CALCIUM 9.7 mg/dL (8.4-10.5); CARBON DIOXIDE 24 mmol/L (21-33); CHLORIDE 104 mmol/L (98-107); GFR AFRICAN-AMERICAN > 60; GLUCOSE,RANDOM 117 mg/dL (70-110); POTASSIUM 4.3 mmol/L (3.6-5.0); SODIUM 140 mmol/L (132-148)
[2017-03-09] MEDS ORDERED: Digoxin 125 mcg (0.125 mg) Tab PO SCH (14:00)
== END 2017-03-09 13:00 | disposition home or self-care (01) ==
LOC: ED 00:16 → ERH 01:53 → 5RNO 03:38
PROVIDERS: ADMIT Internal Medicine; ATTEND Internal Medicine
DX: R79.1 Abnormal coagulation profile (principal); I25.10 Atherosclerotic heart disease of native coronary artery without angina pectoris; I48.91 Unspecified atrial fibrillation; I50.9 Heart failure, unspecified; I11.0 Hypertensive heart disease with heart failure; Z79.01 Long term (current) use of anticoagulants; Z79.899 Other long term (current) drug therapy; Z85.46 Personal history of malignant neoplasm of prostate; Z87.01 Personal history of pneumonia (recurrent); Z92.3 Personal history of irradiation; Z95.0 Presence of cardiac pacemaker; Z88.2 Allergy status to sulfonamides; Z87.892 Personal history of anaphylaxis; Z80.0 Family history of malignant neoplasm of digestive organs; Z80.42 Family history of malignant neoplasm of prostate; Z82.49 Family history of ischemic heart disease and other diseases of the circulatory system; R40.2412 Glasgow coma scale score 13-15, at arrival to emergency department
CPT/HCPCS: 36430; 80053; 85025; 85027; 85610; 85730; 86850; 86900; 99285; G0378; P9017

== ENCOUNTER 2017-04-06 15:10 | Observation (INO) | payer MEDICAID ==
[2017-04-06 15:11] VITALS: PULSE 75
[2017-04-06 15:28] VITALS: BMI 35.5
--- NOTE | 2017-04-06 15:36 | ED PDOC ---
Arrival/HPI - General Time Seen by Provider: 04/06/17 15:17 Historian: Patient - History of Present Illness Narrative History of Present Illness (Text): 04/06/17 15:35 A 62 year old male, whose past medical history includes hypertension, atrial fibrillation, CAD, EF of 27, pacemaker defibrillator placed in Jan 2017 presents to the emergency department for evaluation after pacemaker went off. Patient reports he woke up feeling fine this morning. He states he ran out of his blood pressure medication and went to the pharmacy to get it refilled. Patient became agitated after waiting one hour for his medication and reports his pacemaker went off once. On evaluation, patient states he feels better and denies any pain or discomfort at this time. Patient denies any fever, chills, nausea, vomiting, abdominal pain, chest pain, shortness of breath, headache, dizziness or any other complaints. Time/Duration: Prior to Arrival Symptom Course: Resolved Context: Other (pharmacy) Past Medical History - Provider Review Nursing Documentation Reviewed: Yes - Past History Past History: No Previous - Infectious Disease Hx of Infectious Diseases: None - Tetanus Immunization Tetanus Immunization: Unknown - Cardiac Hx Cardiac Disorders: Yes (CAD) Hx Cardiac Arrhythmia: Yes Hx Congestive Heart Failure: Yes Hx Hypertension: Yes Hx Pacemaker: Yes - Pulmonary Hx Pneumonia: Yes - Neurological Hx Neurological Disorder: No - HEENT Hx HEENT Disorder: No - Renal Hx Renal Disorder: No - Endocrine/Metabolic Hx Endocrine Disorders: No - Hematological/Oncological Hx Blood Disorders: No - Integumentary Hx Dermatological Disorder: No - Musculoskeletal/Rheumatological Hx Falls: No - Gastrointestinal Hx Gastrointestinal Disorders: No - Genitourinary/Gynecological Hx Genitourinary Disorders: Yes (HYDROCELE) Hx Prostate Problems: Yes (PROSTATE CA WITH 44 T X OF RADIATION) - Psychiatric Hx Psychophysiologic Disorder: No Hx Emotional Abuse: No Hx Physical Abuse: No Hx Substance Use: No - Surgical History Hx Cardiac Catheterization: Yes (APR 2012 ) Hx Open Heart Surgery: Yes (pacemaker 3 weeks ago) Other/Comment: tonsillectomy - Anesthesia Hx Anesthesia Reactions: No Hx Malignant Hyperthermia: No - Suicidal Assessment Feels Threatened In Home Enviroment: No Family/Social History - Physician Review Nursing Documentation Reviewed: Yes Family/Social History: No Known Family HX Smoking Status: Never Smoked Hx Alcohol Use: No Hx Substance Use: No Hx Substance Use Treatment: No Allergies/Home Meds Allergies/Adverse Reactions: Allergies Sulfa (Sulfonamide Antibiotics) Allergy (Severe, Verified 04/06/17 16:23) ANAPHYLAXIS Home Medications: Home Meds Medication Instructions Recorded Confirmed RX: Carvedilol [Coreg] 25 mg PO BID 08/12/16 04/06/17 RX: Atorvastatin [Lipitor] 10 mg PO ONCE 03/09/17 04/06/17 RX: Digoxin [Lanoxin] 0.125 mg PO HS 03/09/17 04/06/17 RX: Lisinopril [Zestril] 10 mg PO ONCE 03/09/17 04/06/17 RX: Spironolactone [Aldactone] 25 mg PO ONCE 03/09/17 04/06/17 Warfarin [Coumadin] 1 mg PO 1800 04/06/17 04/06/17 Review of Systems - Physician Review All systems were reviewed & negative as marked: Yes - Review of Systems Constitutional: Normal. absent: Fevers, Night Sweats Respiratory: absent: SOB, Cough Cardiovascular: absent: Chest Pain, Palpitations, Calf Pain, PANDYA Gastrointestinal: absent: Abdominal Pain, Nausea, Vomiting Neurological: absent: Headache, Dizziness Physical Exam Vital Signs Temp Pulse Resp BP Pulse Ox 04/06/17 15:28 98 F 96 H 18 132/79 96 Temperature: Afebrile Blood Pressure: Normal Pulse: Regular Respiratory Rate: Normal Appearance: Positive for: Well-Appearing, Non-Toxic, Comfortable Pain Distress: None Mental Status: Positive for: Alert and Oriented X 3 - Systems Exam Head: Present: Atraumatic, Normocephalic Pupils: Present: PERRL Extroacular Muscles: Present: EOMI Conjunctiva: Present: Normal Mouth: Present: Moist Mucous Membranes Neck: Present: Normal Range of Motion Respiratory/Chest: Present: Clear to Auscultation, Good Air Exchange. No: Respiratory Distress, Accessory Muscle Use Cardiovascular: Present: Regular Rate and Rhythm, Normal S1, S2. No: Murmurs Abdomen: Present: Normal Bowel Sounds. No: Tenderness, Distention, Peritoneal Signs Back: Present: Normal Inspection Upper Extremity: Present: Normal Inspection. No: Cyanosis, Edema Lower Extremity: Present: Normal Inspection. No: Edema Neurological: Present: GCS=15, CN II-XII Intact, Speech Normal Skin: Present: Warm, Dry, Normal Color. No: Rashes Psychiatric: Present: Alert, Oriented x 3, Normal Insight, Normal Concentration Medical Decision Making ED Course and Treatment: 04/06/17 15:35 Impression: A 62 year old male presents for evaluation after pacemaker went off once. Plan: -- Chest xray -- EKG -- Labs -- Urinalysis -- Aspirin -- Reassess and disposition Progress Notes: Patients pacemaker defibrillator is from [employer]. Contact information: [phone] or EKG shows NSR at 93bpm with diffuse t wave inversions, grossly unchanged from prio. 04/06/17 16:32 CBC WNL. CMP shows low Mag and replacement ordered. Trop x 1 negative. BNP mildly elevated. Cxray negatve. INR mildly elevated but no active bleeding. Tele observation under hospitalist. [employer] to send [employer] for aicd interrogation. Resting comfortably with no complaint of chest pain. - Lab Interpretations Lab Results: 04/06/17 15:55 04/06/17 15:55 Lab Results 04/06/17 15:55: Sodium 140, Potassium 3.8, Chloride 106, Carbon Dioxide 24, Anion Gap 14, BUN 12, Creatinine 0.9, Est GFR ( Amer) > 60, Est GFR (Non- Af Amer) > 60, Random Glucose 108, Calcium 9.7, Phosphorus 2.5, Magnesium 1.6 L , Total Bilirubin 1.2, AST 28, ALT 44, Alkaline Phosphatase 79, Lactate Dehydrogenase 574, Total Creatine Kinase 99, Troponin I < 0.01, NT-Pro-B Natriuret Pep 568 H, Total Protein 7.5, Albumin 4.4, Globulin 3.0, Albumin/ Globulin Ratio 1.5 04/06/17 15:55: PT 47.7 H, INR 4.25 H*, APTT 53.5 H 04/06/17 15:55: WBC 6.6, RBC 4.78, Hgb 14.3, Hct 40.5 L, MCV 84.7, MCH 29.9, MCHC 35.3, RDW 13.5, Plt Count 160, MPV 10.0, Gran % 69.9 H, Lymph % (Auto) 21.3 L, [place] % (Auto) 6.7 H, Eos % (Auto) 1.8, Baso % (Auto) 0.3, Gran # 4.59, Lymph # 1.4, Deuel # 0.4, Eos # 0.1, Baso # 0.02 I have reviewed the lab results: Yes - RAD Interpretation Radiology Orders: 04/06/17 15:40 CHEST PORTABLE [RAD] Stat - Medication Orders Current Medication Orders: Magnesium Sulfate/Dextrose (Magnesium Sulfate 1 Gm/100 Ml D5w) 1 gm in 100 mls @ 100 mls/hr IVPB ONCE ONE Stop: 04/06/17 17:30 Discontinued Medications Aspirin (Aspirin Chewable) 324 mg PO STAT STA Stop: 04/06/17 15:45 Last Admin: 04/06/17 16:00 Dose: 324 mg - Scribe Statement The provider has reviewed the documentation as recorded by the Raphael Sneed Provider Scribe Attestation: All medical record entries made by the Scribe were at my direction and personally dictated by me. I have reviewed the chart and agree that the record accurately reflects my personal performance of the history, physical exam, medical decision making, and the department course for this patient. I have also personally directed, reviewed, and agree with the discharge instructions and disposition. Disposition/Present on Arrival - Present on Arrival Any Indicators Present on Arrival: No History of DVT/PE: No History of Uncontrolled Diabetes: No Urinary Catheter: No History Surgical Site Infection Following: None - Disposition Have Diagnosis and Disposition been Completed?: Yes Diagnosis: Supratherapeutic INR, AICD discharge Disposition: HOSPITALIZED Disposition Time: 16:43 Patient Plan: Observation Condition: FAIR Referrals: Rambo Jordan MD [Primary Care Provider] - Follow up with primary
[2017-04-06 16:09] LABS: BASO # 0.02 K/mm3 (0.0-2.0); BASO % 0.3 % (0.0-3.0); EOS # 0.1 (0.0-0.7); EOS % 1.8 % (1.5-5.0); GRAN # 4.59 (1.4-6.5); GRAN % 69.9 % (50.0-68.0); HEMATOCRIT 40.5 % (42.0-52.0); LYMPH # 1.4 (1.2-3.4); LYMPH % 21.3 % (22.0-35.0); MEAN CELL VOLUME 84.7 fl (80.0-105.0); MEAN CORPUSCULAR HEMOGLOBIN 29.9 pg (25.0-35.0); MEAN CORPUSCULAR HGB CONC 35.3 g/dl (31.0-37.0); MONO # 0.4 (0.1-0.6); MONO % 6.7 % (1.0-6.0); RED CELL DISTRIBUTION WIDTH 13.5 % (11.5-14.5); WHITE BLOOD COUNT 6.6 10^3/ul (4.5-11.0)
[2017-04-06 16:25] LABS: INR 4.25 (0.93-1.08); PARTIAL THROMBOPLASTIN TIME 53.5 Seconds (25.1-36.5)
[2017-04-06 16:27] LABS: TROPONIN I < 0.01 ng/mL
[2017-04-06 16:30] LABS: ALB/GLOB RATIO 1.5 (1.1-1.8); ALKALINE PHOSPHATASE 79 U/L (38-126); ALT/SGPT 44 U/L (7-56); AST/SGOT 28 U/L (17-59); BILIRUBIN,TOTAL 1.2 mg/dL (0.2-1.3); BLOOD UREA NITROGEN 12 mg/dL (7-21); CALCIUM 9.7 mg/dL (8.4-10.5); CARBON DIOXIDE 24 mmol/L (21-33); CHLORIDE 106 mmol/L (98-107); GFR AFRICAN-AMERICAN > 60; GLUCOSE,RANDOM 108 mg/dL (70-110); MAGNESIUM 1.6 mg/dL (1.7-2.2); PHOSPHOROUS 2.5 mg/dL (2.5-4.5); POTASSIUM 3.8 mmol/L (3.6-5.0); SODIUM 140 mmol/L (132-148); TOTAL PROTEIN 7.5 g/dL (5.8-8.3)
[2017-04-06] MEDS ORDERED: Magnesium Sulfate 1 gm in D5W 1 GM/100 ML BAG IVPB ONE (16:31)
--- NOTE | 2017-04-06 16:42 | CP.PCM.HP ---
<Tami Jeter - Last Filed: 04/06/17 17:19> History of Present Illness - History of Present Illness History of Present Illness: 62 year old male PMHx CHF with EF 27% s/p AICD placed Feb 21, 2017, CAD, Afib, HTN, prostate ca s/p radiation, hydrocele presents to the ED for evaluation after his pacemaker went off in the AM on the day of admission. Patient reports he went to the pharmacy to have his medications filled and was agitated after waiting for his Rx to be prepared and also believes his BP might have been high as he had not taken his BP meds. He states he felt the defibrillator shock him once but denied any complaints of chest pain, SOB, palpitations, pain down his left arm or up his jaw at the time of the event. At time of examination he denied any acute complaints of headache, dizziness, chest pain, palpitations, SOB, orthopnea, PND, cough, abd pain, nausea, vomiting, bowel/bladder complaints , pain/swelling in his legs bilaterally. He reports he last saw his PMD Dr. Jordan in February for a routine exam. He last saw sagger filler Dr. Palumbo yesterday 04/05 to have his coumadin dose adjusted to 1mg and was due to see sagger filler Dr. Flores tomorrow 04/07. PMD: Dr Jordan Pharmacy: [facility] [place] [facility] [employer] Crosscutter: Dr. Flores, Dr Sultan Palumbo [facility] information: [employer]. Contact information: [phone] or PMHx: CHF with EF 27% s/p AICD placed Feb 21, 2017 at [facility], CAD, Afib, HTN, prostate ca s/p radiation, hydrocele PSurgHx: Pacemaker Jan 2017 and cardiac cath with no stents SocHx: denies alcohol, tobacco, drug use; lives alone FamHx: denies Meds: Coumadin 1mg daily, Lisinopril 20mg, Lipitor 10mg, Digoxin 0.025mg, Lasix 20mg 2x/week, Coreg 25 mg BID, Vit D 1000iu qd [pls see chart] All: Sulfa abx - anaphylaxis Present on Admission - Present on Admission Any Indicators Present on Admission: No Review of Systems - Review of Systems All systems: reviewed and no additional remarkable complaints except - Constitutional Constitutional: As Per HPI. absent: Chills, Fever - EENT Eyes: As Per HPI. absent: Blurred Vision Ears: As Per HPI. absent: Dizziness Nose/Mouth/Throat: As Per HPI. absent: Sore Throat - Cardiovascular Cardiovascular: As Per HPI. absent: Chest Pain, Dyspnea, Dyspnea on Exertion, Edema, Leg Edema - Respiratory Respiratory: As Per HPI. absent: Cough, Dyspnea, Dyspnea on Exertion - Gastrointestinal Gastrointestinal: As Per HPI. absent: Abdominal Pain, Constipation, Diarrhea, Nausea, Vomiting - Genitourinary Genitourinary: As Per HPI. absent: Dysuria, Hematuria, Pyuria - Musculoskeletal Musculoskeletal: As Per HPI. absent: Back Pain, Numbness, Tingling - Integumentary Integumentary: As Per HPI. absent: Dry Skin, Rash - Neurological Neurological: As Per HPI. absent: Dizziness, Numbness, Headaches, Tingling, Weakness - Psychiatric Psychiatric: As Per HPI. absent: Anxiety - Endocrine Endocrine: As Per HPI. absent: Polydipsia, Polyphagia, Polyuria - Hematologic/Lymphatic Hematologic: As Per HPI. absent: Easy Bleeding, Easy Bruising, Lymphadenopathy Past Patient History - Infectious Disease Hx of Infectious Diseases: None - Tetanus Immunizations Tetanus Immunization: Unknown - Past Medical History & Family History Past Medical History?: Yes - Past Social History Smoking Status: Never Smoked - CARDIAC Hx Cardiac Disorders: Yes (CAD) Hx Cardia Arrhythmia: Yes Hx Congestive Heart Failure: Yes Hx Hypertension: Yes Hx Pacemaker: Yes - PULMONARY Hx Pneumonia: Yes - NEUROLOGICAL Hx Neurological Disorder: No - HEENT Hx HEENT Problems: No - RENAL Hx Chronic Kidney Disease: No - ENDOCRINE/METABOLIC Hx Endocrine Disorders: No - HEMATOLOGICAL/ONCOLOGICAL Hx Blood Disorders: No - INTEGUMENTARY Hx Dermatological Problems: No - MUSCULOSKELETAL/RHEUMATOLOGICAL Hx Falls: No - GASTROINTESTINAL Hx Gastrointestinal Disorders: No - GENITOURINARY/GYNECOLOGICAL Hx Genitourinary Disorders: Yes (HYDROCELE) Hx Prostate Problems: Yes (PROSTATE CA WITH 44 T X OF RADIATION) - PSYCHIATRIC Hx Psychophysiologic Disorder: No Hx Emotional Abuse: No Hx Physical Abuse: No Hx Substance Use: No - SURGICAL HISTORY Hx Cardiac Catheterization: Yes (APR 2012 ) Hx Open Heart Surgery: Yes (pacemaker 3 weeks ago) Other/Comment: tonsillectomy - ANESTHESIA Hx Anesthesia Reactions: No Hx Malignant Hyperthermia: No Meds Allergies/Adverse Reactions: Allergies Allergy/AdvReac Type Severity Reaction Status Date / Time No Known Allergies Allergy Verified 04/07/17 01:52 Physical Exam - Constitutional Appears: Non-toxic, No Acute Distress - Head Exam Head Exam: ATRAUMATIC, NORMAL INSPECTION, NORMOCEPHALIC - Eye Exam Eye Exam: EOMI, Normal appearance, PERRL. absent: Conjunctival injection, Scleral icterus Pupil Exam: NORMAL ACCOMODATION - ENT Exam ENT Exam: Mucous Membranes Moist - Neck Exam Neck exam: Positive for: Full Rom, Normal Inspection - Respiratory Exam Respiratory Exam: Clear to Auscultation Bilateral, NORMAL BREATHING PATTERN. absent: Accessory Muscle Use, Rales, Rhonchi, Wheezes, Respiratory Distress - Cardiovascular Exam Cardiovascular Exam: +S1, +S2. absent: Systolic Murmur - GI/Abdominal Exam GI & Abdominal Exam: Normal Bowel Sounds, Soft. absent: Firm, Guarding, Rigid, Tenderness - Extremities Exam Extremities exam: Positive for: normal capillary refill, normal inspection, pedal pulses present. Negative for: pedal edema, tenderness - Back Exam Back exam: NORMAL INSPECTION. absent: rash noted - Neurological Exam Neurological exam: Alert, CN II-XII Intact, Oriented x3 - Psychiatric Exam Psychiatric exam: Normal Affect, Normal Mood - Skin Skin Exam: Dry, Intact, Normal Color, Warm Results - Vital Signs Recent Vital Signs: Last Vital Signs Temp 98 F 04/06/17 15:28 Pulse 96 H 04/06/17 15:28 Resp 18 04/06/17 15:28 BP 132/79 04/06/17 15:28 Pulse Ox 96 04/06/17 15:28 - Labs Result Diagrams: 04/06/17 15:55 04/06/17 15:55 Labs: Laboratory Results - last 24 hr 04/06/17 04/06/17 04/06/17 15:55 15:55 15:55 WBC 6.6 RBC 4.78 Hgb 14.3 Hct 40.5 L MCV 84.7 MCH 29.9 MCHC 35.3 RDW 13.5 Plt Count 160 MPV 10.0 Gran % 69.9 H Lymph % (Auto) 21.3 L Zavala % (Auto) 6.7 H Eos % (Auto) 1.8 Baso % (Auto) 0.3 Gran # 4.59 Lymph # 1.4 Zavala # 0.4 Eos # 0.1 Baso # 0.02 PT 47.7 H INR 4.25 H* APTT 53.5 H Sodium 140 Potassium 3.8 Chloride 106 Carbon Dioxide 24 Anion Gap 14 BUN 12 Creatinine 0.9 Est GFR ( Amer) > 60 Est GFR (Non-Af Amer) > 60 Random Glucose 108 Calcium 9.7 Phosphorus 2.5 Magnesium 1.6 L Total Bilirubin 1.2 AST 28 ALT 44 Alkaline Phosphatase 79 Lactate Dehydrogenase 574 Total Creatine Kinase 99 Troponin I < 0.01 NT-Pro-B Natriuret Pep 568 H Total Protein 7.5 Albumin 4.4 Globulin 3.0 Albumin/Globulin Ratio 1.5 Assessment & Plan - Assessment and Plan (Free Text) Assessment: 62 year old male PMHx CHF with EF 27% s/p AICD placed Feb 21, 2017, CAD, Afib, HTN, prostate ca s/p radiation, hydrocele presents to the ED for evaluation after his pacemaker went off in the AM on the day of admission Plan: AICD discharge - admit to TELE obs - Trop neg x 1 f/u trop x 2 - placed Feb 21, 2017 - pacemaker defibrillator is from [employer] who will send [employer] for AICD interrogation - EKG: NSR at 93bpm with diffuse t wave inversions, grossly unchanged from prio - Cardiology Dr. Amaro consulted Supratherapeutic INR - INR 4.25 - no active signs of bleeding and H&H is stable - hold coumadin - recheck in the AM CHF with EF 27% - proBNP 568 - Echo July 2016 reviewed - continue home medications: Coreg 25mg po bid Lisinopril 10mg po qdaily Digoxin 0.125mg po qdaily Aldactone 25mg po qdaily - daily weight - strict Is and Os Hx of CAD - Lipitor 10mg po qdaily Hx of Afib - Coumadin on hold secondary to supratherapeutic INR Hx of HTN - continue home medications: Coreg 25mg po bid Lisinopril 10mg po qdaily Hx of low vitamin D - continue Vitamin D 1000iu po qdaily Hx of Prostate ca s/p radiation - no acute issues Hx of Hydrocele - no acute issues GI ppx: Pepcid 20mg po bid DVT ppx: SCDs Diet: heart healthy with fluid restriction Case discussed with Dr. Liza Jeter PGY2 <Jeanette De Jesus - Last Filed: 04/07/17 14:58> Results - Vital Signs Recent Vital Signs: Last Vital Signs Temp 98.3 F 04/07/17 12:00 Pulse 69 04/07/17 12:00 Resp 18 04/07/17 12:00 BP 109/65 04/07/17 12:00 Pulse Ox 99 04/07/17 06:00 - Labs Result Diagrams: 04/07/17 05:20 04/07/17 05:20 Labs: Laboratory Results - last 24 hr 04/06/17 04/07/17 04/07/17 21:32 05:20 05:20 WBC 6.8 RBC 4.58 Hgb 13.4 L Hct 39.3 L MCV 85.8 MCH 29.3 MCHC 34.1 RDW 13.9 Plt Count 165 MPV 10.1 Gran % 65.7 Lymph % (Auto) 24.9 Zavala % (Auto) 7.2 H Eos % (Auto) 1.6 Baso % (Auto) 0.6 Gran # 4.46 Lymph # 1.7 Zavala # 0.5 Eos # 0.1 Baso # 0.04 PT INR APTT Sodium 141 Potassium 3.9 Chloride 105 Carbon Dioxide 26 Anion Gap 15 BUN 11 Creatinine 0.8 Est GFR ( Amer) > 60 Est GFR (Non-Af Amer) > 60 Random Glucose 105 Calcium 9.4 Phosphorus 3.5 Magnesium 2.0 Total Bilirubin 1.3 AST 24 ALT 33 Alkaline Phosphatase 64 Troponin I 0.01 0.02 D Total Protein 7.0 Albumin 4.0 Globulin 2.9 Albumin/Globulin Ratio 1.4 04/07/17 05:20 WBC RBC Hgb Hct MCV MCH MCHC RDW Plt Count MPV Gran % Lymph % (Auto) Zavala % (Auto) Eos % (Auto) Baso % (Auto) Gran # Lymph # Zavala # Eos # Baso # PT 44.2 H INR 3.94 H* APTT 49.5 H Sodium Potassium Chloride Carbon Dioxide Anion Gap BUN Creatinine Est GFR ( Amer) Est GFR (Non-Af Amer) Random Glucose Calcium Phosphorus Magnesium Total Bilirubin AST ALT Alkaline Phosphatase Troponin I Total Protein Albumin Globulin Albumin/Globulin Ratio Attending/Attestation - Attestation I have personally seen and examined this patient.: Yes I have fully participated in the care of the patient.: Yes I have reviewed all pertinent clinical information: Yes Notes (Text): 04/07/17 14:54 Patient was seen and examined with medical claims manager. Agreed with resident assessment and plan. 62 year old male PMHx CHF with EF 27% s/p AICD placed Feb 21, 2017, CAD, Afib on anticoagulation with warfarin , HTN, prostate ca is admitted with H/O AICD shock while patient was in a store, no H/O lose of consciousness, no H/O chest kenna or palpitation.Patient is euvolemic.We will monitor patient in telemetry, we will also get AICD evaluation.Magnesium is mildly low, we will repalce magnesium.INR is high, there is no evidence of bleeding, we will hold warfarin and will monitor INR. Management plan was discussed in detail with patient Education was provided.
--- NOTE | 2017-04-06 16:47 | RAD ---
HISTORY: chest pain COMPARISON: 08/12/2016 FINDINGS: LUNGS: No consolidation PLEURA: No significant pleural effusion identified, no pneumothorax apparent. Soft tissue density overlying the left inferolateral hemithorax could be due to summation effects and more shallow lung volumes. No blunting of left costophrenic angle to suggest a more significant effusion here CARDIOVASCULAR: Interval AICD device placed -position appears satisfactory per frontal view Cardiomegaly-as before. Pulmonary vasculature probably top-normal given inspiration OSSEOUS STRUCTURES: Bilateral shoulder arthrosis. Thoracic spondylosis VISUALIZED UPPER ABDOMEN: Normal. OTHER FINDINGS: Asymmetrically elevated right hemidiaphragm -more shallow inspiration inferred. IMPRESSION: Interval AICD device placed. Cardiomegaly as before No consolidation
[2017-04-06] MEDS ORDERED: Digoxin 125 mcg (0.125 mg) Tab PO SCH (22:00)
[2017-04-06 22:36] VITALS: RESP 18
[2017-04-06] MEDS ORDERED: Influenza Vaccine 60 mcg/0.5 mL SYR (4YR UP) IM ONE (22:36)
[2017-04-06] MEDS ORDERED: Pneumococcal 23-Valent Vaccine IM ONE (22:36)
[2017-04-07 05:37] LABS: BASO # 0.04 K/mm3 (0.0-2.0); BASO % 0.6 % (0.0-3.0); EOS # 0.1 (0.0-0.7); EOS % 1.6 % (1.5-5.0); GRAN # 4.46 (1.4-6.5); GRAN % 65.7 % (50.0-68.0); HEMATOCRIT 39.3 % (42.0-52.0); LYMPH # 1.7 (1.2-3.4); LYMPH % 24.9 % (22.0-35.0); MEAN CELL VOLUME 85.8 fl (80.0-105.0); MEAN CORPUSCULAR HEMOGLOBIN 29.3 pg (25.0-35.0); MEAN CORPUSCULAR HGB CONC 34.1 g/dl (31.0-37.0); MEAN PLATELET VOLUME 10.1 fl (7.0-11.0); MONO # 0.5 (0.1-0.6); MONO % 7.2 % (1.0-6.0); RED CELL DISTRIBUTION WIDTH 13.9 % (11.5-14.5); WHITE BLOOD COUNT 6.8 10^3/ul (4.5-11.0)
[2017-04-07 05:53] LABS: PARTIAL THROMBOPLASTIN TIME 49.5 Seconds (25.1-36.5)
[2017-04-07 05:57] LABS: INR 3.94 (0.93-1.08)
[2017-04-07 06:07] VITALS: O2SAT 99
[2017-04-07 06:07] LABS: TROPONIN I 0.02 ng/mL
[2017-04-07 06:48] LABS: ALB/GLOB RATIO 1.4 (1.1-1.8); ALKALINE PHOSPHATASE 64 U/L (38-126); ALT/SGPT 33 U/L (7-56); AST/SGOT 24 U/L (17-59); BILIRUBIN,TOTAL 1.3 mg/dL (0.2-1.3); BLOOD UREA NITROGEN 11 mg/dL (7-21); CALCIUM 9.4 mg/dL (8.4-10.5); CARBON DIOXIDE 26 mmol/L (21-33); CHLORIDE 105 mmol/L (98-107); GFR AFRICAN-AMERICAN > 60; GLUCOSE,RANDOM 105 mg/dL (70-110); PHOSPHOROUS 3.5 mg/dL (2.5-4.5); POTASSIUM 3.9 mmol/L (3.6-5.0); SODIUM 141 mmol/L (132-148)
[2017-04-07] MEDS ORDERED: Cholecalciferol 1,000 INTLU TAB PO SCH (10:00)
[2017-04-07 12:24] VITALS: BP 109/65; PULSE 69; TEMP 98.3
--- NOTE | 2017-04-07 17:23 | CP.PCM.DIS ---
<Leo Gallo - Last Filed: 04/07/17 17:46> Provider - Provider Date of Admission: 04/06/17 16:33 Attending physician: Jeanette De Jesus MD Primary care physician: Rambo Jordan MD Time Spent in preparation of Discharge (in minutes): 45 Hospital Course - Lab Results Lab Results: Most Recent Lab Values WBC 6.8 10^3/ul (4.5-11.0) 04/07/17 05:20 RBC 4.58 10^6/uL (3.5-6.1) 04/07/17 05:20 Hgb 13.4 g/dL (14.0-18.0) L 04/07/17 05:20 Hct 39.3 % (42.0-52.0) L 04/07/17 05:20 MCV 85.8 fl (80.0-105.0) 04/07/17 05:20 MCH 29.3 pg (25.0-35.0) 04/07/17 05:20 MCHC 34.1 g/dl (31.0-37.0) 04/07/17 05:20 RDW 13.9 % (11.5-14.5) 04/07/17 05:20 Plt Count 165 10^3/uL (120.0-450.0) 04/07/17 05:20 MPV 10.1 fl (7.0-11.0) 04/07/17 05:20 Gran % 65.7 % (50.0-68.0) 04/07/17 05:20 Lymph % (Auto) 24.9 % (22.0-35.0) 04/07/17 05:20 Winkler % (Auto) 7.2 % (1.0-6.0) H 04/07/17 05:20 Eos % (Auto) 1.6 % (1.5-5.0) 04/07/17 05:20 Baso % (Auto) 0.6 % (0.0-3.0) 04/07/17 05:20 Gran # 4.46 (1.4-6.5) 04/07/17 05:20 Lymph # 1.7 (1.2-3.4) 04/07/17 05:20 Winkler # 0.5 (0.1-0.6) 04/07/17 05:20 Eos # 0.1 (0.0-0.7) 04/07/17 05:20 Baso # 0.04 K/mm3 (0.0-2.0) 04/07/17 05:20 PT 44.2 SECONDS (9.4-12.5) H 04/07/17 05:20 INR 3.94 (0.93-1.08) H* 04/07/17 05:20 APTT 49.5 Seconds (25.1-36.5) H 04/07/17 05:20 Sodium 141 mmol/L (132-148) 04/07/17 05:20 Potassium 3.9 mmol/L (3.6-5.0) 04/07/17 05:20 Chloride 105 mmol/L (98-107) 04/07/17 05:20 Carbon Dioxide 26 mmol/L (21-33) 04/07/17 05:20 Anion Gap 15 (10-20) 04/07/17 05:20 BUN 11 mg/dL (7-21) 04/07/17 05:20 Creatinine 0.8 mg/dl (0.8-1.5) 04/07/17 05:20 Est GFR ( Amer) > 60 04/07/17 05:20 Est GFR (Non-Af Amer) > 60 04/07/17 05:20 Random Glucose 105 mg/dL (70-110) 04/07/17 05:20 Calcium 9.4 mg/dL (8.4-10.5) 04/07/17 05:20 Phosphorus 3.5 mg/dL (2.5-4.5) 04/07/17 05:20 Magnesium 2.0 mg/dL (1.7-2.2) 04/07/17 05:20 Total Bilirubin 1.3 mg/dL (0.2-1.3) 04/07/17 05:20 AST 24 U/L (17-59) 04/07/17 05:20 ALT 33 U/L (7-56) 04/07/17 05:20 Alkaline Phosphatase 64 U/L (38-126) 04/07/17 05:20 Lactate Dehydrogenase 574 U/L (333-699) 04/06/17 15:55 Total Creatine Kinase 99 U/L (35-230) 04/06/17 15:55 Troponin I 0.02 ng/mL D 04/07/17 05:20 NT-Pro-B Natriuret Pep 568 pg/mL (0-450) H 04/06/17 15:55 Total Protein 7.0 g/dL (5.8-8.3) 04/07/17 05:20 Albumin 4.0 g/dL (3.0-4.8) 04/07/17 05:20 Globulin 2.9 gm/dL 04/07/17 05:20 Albumin/Globulin Ratio 1.4 (1.1-1.8) 04/07/17 05:20 - Hospital Course Hospital Course: 62 year old male, whose past medical history includes hypertension, atrial fibrillation, CAD, EF of 27, pacemaker defibrillator placed in Jan 2017 who presents to the emergency department for evaluation after pacemaker went off. Patient reports he woke up feeling fine this morning. He states he ran out of his blood pressure medication and went to the pharmacy to get it refilled. Patient became agitated after waiting one hour for his medication and reports his pacemaker went off once. On evaluation, patient states he feels better and denies any pain or discomfort at this time. Patient denies any fever, chills, nausea, vomiting, abdominal pain, chest pain, shortness of breath, headache, dizziness or any other complaints. Initial diagnostic testing revealed a supratherapeutic INR and hypomagesnium. Review of the patient's EKG rhythm stripped revealed a bout of V -tach, AICD stimulation, and patient back in sinus rhythm. Patient was monitored overnight with equipment monitor phototypesetting. No further episodes of V-tach were noted and patient was discharged with the below written instructions. - Date & Time of H&P Date of H&P: 04/07/17 Time of H&P: 10:47 Discharge Exam - Head Exam Head Exam: ATRAUMATIC, NORMOCEPHALIC - Eye Exam Eye Exam: EOMI, Normal appearance - ENT Exam ENT Exam: Mucous Membranes Moist, Normal Oropharynx - Neck Exam Neck exam: Normal Inspection - Respiratory Exam Respiratory Exam: Clear to PA & Lateral, NORMAL BREATHING PATTERN - Cardiovascular Exam Cardiovascular Exam: RRR, +S1, +S2 - GI/Abdominal Exam GI & Abdominal Exam: Normal Bowel Sounds, Unremarkable - Extremities Exam Extremities exam: normal inspection - Back Exam Back exam: NORMAL INSPECTION. absent: CVA tenderness (L), CVA tenderness (R) - Neurological Exam Neurological exam: Alert, CN II-XII Intact, Oriented x3 - Psychiatric Exam Psychiatric exam: Normal Affect, Normal Mood - Skin Skin Exam: Dry, Intact, Normal Color, Warm Discharge Plan - Discharge Medications Prescriptions: Potassium Chloride [K-Dur 20] 20 meq PO QOTHERDAY #15 tab - Follow Up Plan Condition: FAIR Disposition: HOME/ ROUTINE Instructions: Implantable Cardioverter Defibrillator (DC) Additional Instructions: 1) Patient to obtain INR tomorrow and not to take Coumadin today 04/07/17. 2) Patient to follow up with PMD within the next 7 days. 3) Patient to schedule appointment with endoscope technician. 4) Patient to return to the ED for any worsening of symptoms. 5) Begin taking potassium every other day as prescribed. Referrals: Rambo Jordan MD [Primary Care Provider] - <Jeanette De Jesus - Last Filed: 04/08/17 16:38> Provider - Provider Date of Admission: 04/06/17 16:33 Attending physician: Jeanette De Jesus MD Primary care physician: Rambo Jordan MD [facility] Course - Lab Results Lab Results: Most Recent Lab Values WBC 6.8 10^3/ul (4.5-11.0) 04/07/17 05:20 RBC 4.58 10^6/uL (3.5-6.1) 04/07/17 05:20 Hgb 13.4 g/dL (14.0-18.0) L 04/07/17 05:20 Hct 39.3 % (42.0-52.0) L 04/07/17 05:20 MCV 85.8 fl (80.0-105.0) 04/07/17 05:20 MCH 29.3 pg (25.0-35.0) 04/07/17 05:20 MCHC 34.1 g/dl (31.0-37.0) 04/07/17 05:20 RDW 13.9 % (11.5-14.5) 04/07/17 05:20 Plt Count 165 10^3/uL (120.0-450.0) 04/07/17 05:20 MPV 10.1 fl (7.0-11.0) 04/07/17 05:20 Gran % 65.7 % (50.0-68.0) 04/07/17 05:20 Lymph % (Auto) 24.9 % (22.0-35.0) 04/07/17 05:20 Winkler % (Auto) 7.2 % (1.0-6.0) H 04/07/17 05:20 Eos % (Auto) 1.6 % (1.5-5.0) 04/07/17 05:20 Baso % (Auto) 0.6 % (0.0-3.0) 04/07/17 05:20 Gran # 4.46 (1.4-6.5) 04/07/17 05:20 Lymph # 1.7 (1.2-3.4) 04/07/17 05:20 Winkler # 0.5 (0.1-0.6) 04/07/17 05:20 Eos # 0.1 (0.0-0.7) 04/07/17 05:20 Baso # 0.04 K/mm3 (0.0-2.0) 04/07/17 05:20 PT 44.2 SECONDS (9.4-12.5) H 04/07/17 05:20 INR 3.94 (0.93-1.08) H* 04/07/17 05:20 APTT 49.5 Seconds (25.1-36.5) H 04/07/17 05:20 Sodium 141 mmol/L (132-148) 04/07/17 05:20 Potassium 3.9 mmol/L (3.6-5.0) 04/07/17 05:20 Chloride 105 mmol/L (98-107) 04/07/17 05:20 Carbon Dioxide 26 mmol/L (21-33) 04/07/17 05:20 Anion Gap 15 (10-20) 04/07/17 05:20 BUN 11 mg/dL (7-21) 04/07/17 05:20 Creatinine 0.8 mg/dl (0.8-1.5) 04/07/17 05:20 Est GFR ( Amer) > 60 04/07/17 05:20 Est GFR (Non-Af Amer) > 60 04/07/17 05:20 Random Glucose 105 mg/dL (70-110) 04/07/17 05:20 Calcium 9.4 mg/dL (8.4-10.5) 04/07/17 05:20 Phosphorus 3.5 mg/dL (2.5-4.5) 04/07/17 05:20 Magnesium 2.0 mg/dL (1.7-2.2) 04/07/17 05:20 Total Bilirubin 1.3 mg/dL (0.2-1.3) 04/07/17 05:20 AST 24 U/L (17-59) 04/07/17 05:20 ALT 33 U/L (7-56) 04/07/17 05:20 Alkaline Phosphatase 64 U/L (38-126) 04/07/17 05:20 Lactate Dehydrogenase 574 U/L (333-699) 04/06/17 15:55 Total Creatine Kinase 99 U/L (35-230) 04/06/17 15:55 Troponin I 0.02 ng/mL D 04/07/17 05:20 NT-Pro-B Natriuret Pep 568 pg/mL (0-450) H 04/06/17 15:55 Total Protein 7.0 g/dL (5.8-8.3) 04/07/17 05:20 Albumin 4.0 g/dL (3.0-4.8) 04/07/17 05:20 Globulin 2.9 gm/dL 04/07/17 05:20 Albumin/Globulin Ratio 1.4 (1.1-1.8) 04/07/17 05:20 Attending/Attestation - Attestation I have personally seen and examined this patient.: Yes I have fully participated in the care of the patient.: Yes I have reviewed all pertinent clinical information, including history, physical exam and plan: Yes Notes (Text): 04/08/17 16:33 Patient was seen and examined with medical social consultant. Agreed with resident assessment and plan. 62 year old male PMHx CHF with EF 27% s/p AICD placed Feb 21, 2017, CAD, Afib on anticoagulation with warfarin , HTN, prostate ca was admitted with H/O AICD shock while patient was in a pharmacy store,there was no H/O lose of consciousness, chest pain or palpitation.Patient is euvolemic. AID evaluation reveal burst of SVT.Patient was monitored in telemetry.He remain stable.He has follow up appointment with his endoscope technician next week.He is on coreg.Warfarin is on hold at the time of discharge as INR is elevated.There is no evidence of bleeding.He will have repeat INR with PCP on Tuesday. Management plan was discussed in detail with patient Education was provided.
--- NOTE | 2017-04-07 19:14 | CARD ---
APPROVED REPORT EKG Measurement Heart [id number] <Conclusion> Atrial sensed, Bi-ventricular paced rhythm fusion complexes Abnormal ECG
== END 2017-04-07 14:04 | disposition home or self-care (01) ==
LOC: ED 15:10 → ERH 16:33 → 3RSO 20:13
PROVIDERS: ADMIT Internal Medicine; ATTEND Internal Medicine
DX: I47.2 Ventricular tachycardia (principal); I48.91 Unspecified atrial fibrillation; I25.10 Atherosclerotic heart disease of native coronary artery without angina pectoris; I11.0 Hypertensive heart disease with heart failure; I50.9 Heart failure, unspecified; C61 Malignant neoplasm of prostate; N43.3 Hydrocele, unspecified; Z95.810 Presence of automatic (implantable) cardiac defibrillator; Z92.3 Personal history of irradiation
CPT/HCPCS: 36415; 71010; 80053; 82550; 83615; 83735; 83880; 84100; 84484; 85025; 85610; 85730; 93005; 96365; 99285; G0378; J3475

== ENCOUNTER 2017-04-22 15:52 | Observation (INO) | payer MEDICAID ==
[2017-04-22 15:52] VITALS: PULSE 75
--- NOTE | 2017-04-22 16:05 | ED PDOC ---
Arrival/HPI - General Time Seen by Provider: 04/22/17 15:52 Historian: Patient - History of Present Illness Narrative History of Present Illness (Text): 04/22/17 15:57 62 y/o male, pmh including htn/a.fibb/cad/chf with EF 27% with pace maker implanted on 01/2017, here at the ER for complaining for chest pain and pace maker went off as he was having chest pain around 3'o clock this afternoon after exertional exercise walking Pt. stated that he was walking too fast, walking across the street and suddenly have chest pain which he feel the defibrillator went off, asymptomatic now but had a cold sweat, had been on the coumadin 3mg po qd and change to 1mg po qd due to the unstable INR which his dewaterer operator Dr. Flores plan to change it back to the xarelto (had been on before ), stop the digoxin as well, no night sweat, no dizziness, no rash, no numbness or tingling, no palpitation, no other medical or psychological complaints. Director Of Special Services: Dr. Jorge Flores MD Past Medical History - Provider Review Nursing Documentation Reviewed: Yes - Past History Past History: No Previous - Infectious Disease Hx of Infectious Diseases: None - Tetanus Immunization Tetanus Immunization: Unknown - Cardiac Hx Cardiac Disorders: Yes (CAD) Hx Cardiac Arrhythmia: Yes Hx Congestive Heart Failure: Yes Hx Hypertension: Yes Hx Pacemaker: Yes - Pulmonary Hx Pneumonia: Yes - Neurological Hx Neurological Disorder: No - HEENT Hx HEENT Disorder: No - Renal Hx Renal Disorder: No - Endocrine/Metabolic Hx Endocrine Disorders: No - Hematological/Oncological Hx Blood Disorders: No - Integumentary Hx Dermatological Disorder: No - Musculoskeletal/Rheumatological Hx Falls: No - Gastrointestinal Hx Gastrointestinal Disorders: No - Genitourinary/Gynecological Hx Genitourinary Disorders: Yes (HYDROCELE) Hx Prostate Problems: Yes (PROSTATE CA WITH 44 T X OF RADIATION) - Psychiatric Hx Psychophysiologic Disorder: No Hx Emotional Abuse: No Hx Physical Abuse: No Hx Substance Use: No - Surgical History Hx Cardiac Catheterization: Yes (APR 2012 ) Hx Open Heart Surgery: Yes (pacemaker 3 weeks ago) Other/Comment: tonsillectomy - Anesthesia Hx Anesthesia Reactions: No Hx Malignant Hyperthermia: No - Suicidal Assessment Feels Threatened In Home Enviroment: No Family/Social History - Physician Review Nursing Documentation Reviewed: Yes Family/Social History: Unknown Family HX Smoking Status: Never Smoked Hx Alcohol Use: No Hx Substance Use: No Hx Substance Use Treatment: No Allergies/Home Meds Allergies/Adverse Reactions: Allergies No Known Allergies Allergy (Verified 04/07/17 01:52) Home Medications: Home Meds Medication Instructions Recorded Confirmed Carvedilol [Coreg] 25 mg PO BID 08/12/16 04/22/17 Atorvastatin [Lipitor] 10 mg PO ONCE 03/09/17 04/22/17 Spironolactone [Aldactone] 25 mg PO ONCE 03/09/17 04/22/17 Review of Systems - Review of Systems Constitutional: absent: Fatigue, Fevers Eyes: absent: Vision Changes ENT: absent: Hearing Changes Respiratory: absent: SOB, Cough Cardiovascular: Chest Pain, Palpitations Gastrointestinal: absent: Abdominal Pain, Nausea, Vomiting Musculoskeletal: absent: Arthralgias, Back Pain Skin: absent: Rash, Pruritis Neurological: absent: Headache, Dizziness Hemo/Lymphatic: absent: Adenopathy, Easy Bleeding Psychiatric: absent: Anxiety, Depression Physical Exam Vital Signs Reviewed: Yes Vital Signs Temp Pulse Resp BP Pulse Ox 04/22/17 16:40 91 H 12 100/64 96 04/22/17 15:52 97.8 F 93 H 20 111/77 96 Temperature: Afebrile Blood Pressure: Normal Pulse: Regular Respiratory Rate: Normal Appearance: Positive for: Well-Appearing, Non-Toxic, Comfortable Pain Distress: None Mental Status: Positive for: Alert and Oriented X 3 - Systems Exam Head: Present: Atraumatic, Normocephalic Pupils: Present: PERRL Extroacular Muscles: Present: EOMI Conjunctiva: Present: Normal Mouth: Present: Moist Mucous Membranes Neck: Present: Normal Range of Motion Respiratory/Chest: Present: Clear to Auscultation, Good Air Exchange. No: Respiratory Distress, Accessory Muscle Use Cardiovascular: Present: Regular Rate and Rhythm, Normal S1, S2. No: Murmurs Abdomen: Present: Normal Bowel Sounds. No: Tenderness, Distention, Peritoneal Signs Back: Present: Normal Inspection Upper Extremity: Present: Normal Inspection. No: Cyanosis, Edema Lower Extremity: Present: Normal Inspection. No: Edema Neurological: Present: GCS=15, Speech Normal, Motor Func Grossly Intact, Gait Normal, Memory Normal Skin: Present: Warm, Dry, Normal Color. No: Rashes Psychiatric: Present: Alert, Oriented x 3, Normal Insight, Normal Concentration Medical Decision Making ED Course and Treatment: 04/22/17 16:13 -labs/cardiac enzyme/bnp/ua -ekg -cxr -nasal cannula oxygen 2L -air sampling and monitoring -[employer] phone number [phone] contacted by me with infos of the patient given, will call me back with a airline security representative. -Observe and reassess 04/22/17 16:38 -[employer] called me back, discussed about the case and possible AICD discharge, stated that she will come to the ER in an hour to have rhythm strips. 04/22/17 17:08 -EKG: SR @ 94 BPM, no grossly acute ST or T wave changes compared with previous ekgs. -Chest xray: ER wet read: no active disease, pace maker noted. -Labs are non-significant except INR is 2.49, 1st set of troponin is negative, BNP 661 which is mildly elevated compared with previous visit. -Pt. will need to be tele observation under hospitalist for 24 hours for chest pain and AICD discharge, discussed with the patient and family, agreed on the observation plan. -Pending UA -I spoke to DR. James about the case/labs/radiology result, agreed to observe the patient overnight in tele. -I spoke with Dr. Padmini Jhaveri, discussed about the case and pending for the [employer] rep to show up in the ER, agreed to accept the case to observe the patient over night. 04/22/17 17:34 -[employer] rep came with the rhythm strip stated that the patient had the activation of the defibrillator likely due to the runs of a.fibb with RVR which causing the shock as it tachycardic around 200s around 03:27pm, shared the rhythm strip with Dr. James. Attached the rhythm strip to the chart. -Discussed the case and rhythm strip with the admitting medicine Dr. Mix which he will discuss with Dr. Padmini Jhaveri (admitting physician). - Lab Interpretations Lab Results: 04/22/17 16:15 04/22/17 16:15 Lab Results 04/22/17 16:15: Digoxin < 0.4 L 04/22/17 16:15: WBC 8.1, RBC 4.77, Hgb 14.0, Hct 40.6 L, MCV 85.1, MCH 29.4, MCHC 34.5, RDW 13.7, Plt Count 189, MPV 10.0, Gran % 67.9, Lymph % (Auto) 21.3 L , [place] % (Auto) 8.3 H, Eos % (Auto) 2.1, Baso % (Auto) 0.4, Gran # 5.48, Lymph # 1.7, [place] # 0.7 H, Eos # 0.2, Baso # 0.03 04/22/17 16:15: Sodium 141, Potassium 3.7, Chloride 106, Carbon Dioxide 26, Anion Gap 13, BUN 12, Creatinine 1.0, Est GFR ( Amer) > 60, Est GFR (Non- Af Amer) > 60, Random Glucose 112 H, Calcium 9.5, Magnesium 1.7, Total Bilirubin 0.9, AST 27, ALT 36, Alkaline Phosphatase 64, Lactate Dehydrogenase 519, Total Creatine Kinase 91, Troponin I < 0.01 D, NT-Pro-B Natriuret Pep 661 H, Total Protein 7.4, Albumin 4.2, Globulin 3.2, Albumin/Globulin Ratio 1.3 04/22/17 16:15: PT 27.6 H, INR 2.49 H, APTT 41.9 H I have reviewed the lab results: Yes - RAD Interpretation Radiology Orders: 04/22/17 16:06 CHEST PORTABLE [RAD] Stat Chest xray: HISTORY: chest pain/palpitation COMPARISON: Comparison is made with 04/06/2017 FINDINGS: LUNGS: No active pulmonary disease. PLEURA: No significant pleural effusion identified, no pneumothorax apparent. CARDIOVASCULAR: Mild cardiomegaly is again noted. Left-sided pacemaker is seen in place. OSSEOUS STRUCTURES: No significant abnormalities. VISUALIZED UPPER ABDOMEN: Normal. OTHER FINDINGS: None. IMPRESSION: No active disease. Hand Rounder: Radiologist - EKG Interpretation EKG Interpretation (Text): 04/22/17 16:16 -EKG: SR @ 94 BPM, no acute ST or T wave changes compared with previous ekg. Interpreted by ED Physician: Yes Type: 12 lead EKG Comparison: Com.w/previous EKG - Medication Orders Current Medication Orders: Atorvastatin Calcium (Lipitor) 10 mg PO DIN [facility] Last Admin: 04/22/17 18:48 Dose: 10 mg Carvedilol (Coreg) 25 mg PO BID [facility] Furosemide (Lasix) 20 mg PO 2XW [facility] Lisinopril (Zestril) 10 mg PO DAILY [facility] Last Admin: 04/22/17 18:45 Dose: Spironolactone (Aldactone) 25 mg PO DAILY [facility] Last Admin: 04/22/17 18:45 Dose: Warfarin Sodium (Coumadin) 1 mg PO 1800 [facility] PRN Reason: Protocol - PA / ANNEALER HELPER / Resident Statement MD/DO has reviewed & agrees with the documentation as recorded. Disposition/Present on Arrival - Present on Arrival Any Indicators Present on Arrival: No History of DVT/PE: No History of Uncontrolled Diabetes: No Urinary Catheter: No History of Decub. Ulcer: No History Surgical Site Infection Following: None - Disposition Have Diagnosis and Disposition been Completed?: Yes Diagnosis: AICD discharge, Chest pain Disposition: HOSPITALIZED Disposition Time: 16:26 Patient Plan: Admission, Observation, Telemetry Patient Problems: Current Active Problems Problem Status Onset AICD discharge Acute Chest pain Acute Condition: STABLE
[2017-04-22 16:28] LABS: BASO # 0.03 K/mm3 (0.0-2.0); BASO % 0.4 % (0.0-3.0); EOS # 0.2 (0.0-0.7); EOS % 2.1 % (1.5-5.0); GRAN # 5.48 (1.4-6.5); GRAN % 67.9 % (50.0-68.0); LYMPH # 1.7 (1.2-3.4); LYMPH % 21.3 % (22.0-35.0); MEAN CELL VOLUME 85.1 fl (80.0-105.0); MEAN CORPUSCULAR HEMOGLOBIN 29.4 pg (25.0-35.0); MEAN CORPUSCULAR HGB CONC 34.5 g/dl (31.0-37.0); MONO # 0.7 (0.1-0.6); MONO % 8.3 % (1.0-6.0); RBC 4.77 10^6/uL (3.5-6.1); RED CELL DISTRIBUTION WIDTH 13.7 % (11.5-14.5); WHITE BLOOD COUNT 8.1 10^3/ul (4.5-11.0)
[2017-04-22 16:40] LABS: ALB/GLOB RATIO 1.3 (1.1-1.8); ALBUMIN 4.2 g/dL (3.0-4.8); ALT/SGPT 36 U/L (7-56); AST/SGOT 27 U/L (17-59); BLOOD UREA NITROGEN 12 mg/dL (7-21); CALCIUM 9.5 mg/dL (8.4-10.5); GFR AFRICAN-AMERICAN > 60; GFR NON-AFRICAN AMERICAN > 60; MAGNESIUM 1.7 mg/dL (1.7-2.2)
[2017-04-22 16:45] LABS: INR 2.49 (0.93-1.08); PARTIAL THROMBOPLASTIN TIME 41.9 Seconds (25.1-36.5); PROTHROMBIN TIME 27.6 SECONDS (9.4-12.5)
[2017-04-22 16:51] LABS: B-TYPE NATRIURETIC PEPTIDE 661 pg/mL (0-450); TROPONIN I < 0.01 ng/mL
--- NOTE | 2017-04-22 18:22 | CP.PCM.HP ---
<Dominguez Cisse - Last Filed: 04/22/17 18:58> History of Present Illness - History of Present Illness History of Present Illness: CC: AICD discharge HPI: Patient is a 62 year old male with a past medical history of PA '14, atrial fibrillation, cardiomyopathy s/p AICD 03/24/17, and prostate cancer for which 44 treatments of radiation were received who presents to the ED with complaints of his AICD discharging. To note patient was recently admitted due to his AICD being triggered on 04/06/17; episode at the time was again triggered due to stress. Patient states he was at the store when he realized he couldn't find his marrero. As a result he rushed back home to see if he left the marrero at his house, unable to find his marrero he rushed back to the store which is when his AICD discharged at 3:27 p.m. Patient states that he tends to get himself worked up and stressed and this as a result causes him to get anxious which increases his heart rate. When patient arrived at the store after the AICD sent a shock, he asked his friends to take him to the hospital. He states that at the time he felt flushed and began sweating. States when his shirt was removed it was soaking wet. At the time of incident and currently patient denies chest pain, shortness of breath, palpitations, abdominal pain, nausea, vomiting, diarrhea, headache. [employer] [facility] states patient was in atrial fibrillation at 3:27 with a rate of 200 which is when the AICD discharged. PMD: Dr. Jordan Driver Trainer: Dr. Flores Surgical history: catheterization 3 years prior for which no stents were placed , AICD 03/24/17 Family History: Father: cause of due to PA Allergies: believed it was sulfa but states he takes lasix so he doubts it Medications: no longer on digoxin, recently discontinued (1 week), lisinopril, carvedilol, spironolactone, coumadin, lipitor, Vitamin D Labs: WBC 8.1, Hemoglobin and hematocrit 40.6, INR 2.49, Sodium 141, Potassium 3.7, Chloride 106, Bicarb 26, BUN 12, Creatinine 1.0, GLucose 112, BNP 661 Present on Admission - Present on Admission Any Indicators Present on Admission: No Review of Systems - Review of Systems Systems not reviewed;Unavailable: Acuity of Condition - Constitutional Constitutional: absent: Chills, Fever, Headache, Malaise, Weakness - EENT Eyes: absent: Blurred Vision, Change in Vision - Cardiovascular Cardiovascular: absent: Chest Pain, Chest Pain at Rest, Dyspnea, Palpitations - Respiratory Respiratory: absent: Dyspnea, Dyspnea on Exertion - Gastrointestinal Gastrointestinal: absent: Abdominal Pain, Diarrhea, Nausea, Vomiting - Neurological Neurological: absent: Confusion, Dizziness, Numbness - Psychiatric Psychiatric: Anxiety Past Patient History - Infectious Disease Hx of Infectious Diseases: None - Tetanus Immunizations Tetanus Immunization: Unknown - Past Medical History & Family History Past Medical History?: Yes - Past Social History Smoking Status: Never Smoked - CARDIAC Hx Cardiac Disorders: Yes (CAD) Hx Cardia Arrhythmia: Yes Hx Congestive Heart Failure: Yes Hx Hypertension: Yes Hx Pacemaker: Yes - PULMONARY Hx Pneumonia: Yes - NEUROLOGICAL Hx Neurological Disorder: No - HEENT Hx HEENT Problems: No - RENAL Hx Chronic Kidney Disease: No - ENDOCRINE/METABOLIC Hx Endocrine Disorders: No - HEMATOLOGICAL/ONCOLOGICAL Hx Blood Disorders: No - INTEGUMENTARY Hx Dermatological Problems: No - MUSCULOSKELETAL/RHEUMATOLOGICAL Hx Falls: No - GASTROINTESTINAL Hx Gastrointestinal Disorders: No - GENITOURINARY/GYNECOLOGICAL Hx Genitourinary Disorders: Yes (HYDROCELE) Hx Prostate Problems: Yes (PROSTATE CA WITH 44 T X OF RADIATION) - PSYCHIATRIC Hx Psychophysiologic Disorder: No Hx Emotional Abuse: No Hx Physical Abuse: No Hx Substance Use: No - SURGICAL HISTORY Hx Cardiac Catheterization: Yes (APR 2012 ) Hx Open Heart Surgery: Yes (pacemaker 3 weeks ago) Other/Comment: tonsillectomy - ANESTHESIA Hx Anesthesia Reactions: No Hx Malignant Hyperthermia: No Meds Allergies/Adverse Reactions: Allergies Allergy/AdvReac Type Severity Reaction Status Date / Time No Known Allergies Allergy Verified 04/07/17 01:52 Physical Exam - Constitutional Appears: Non-toxic, No Acute Distress - Head Exam Head Exam: ATRAUMATIC, NORMAL INSPECTION, NORMOCEPHALIC - Eye Exam Eye Exam: EOMI, Normal appearance - ENT Exam ENT Exam: Mucous Membranes Moist, Normal Exam - Respiratory Exam Respiratory Exam: Clear to Auscultation Bilateral, NORMAL BREATHING PATTERN - Cardiovascular Exam Cardiovascular Exam: REGULAR RHYTHM, +S1, +S2 - Extremities Exam Extremities exam: Positive for: normal inspection, pedal pulses present. Negative for: calf tenderness, pedal edema - Neurological Exam Neurological exam: Alert, CN II-XII Intact, Oriented x3 - Psychiatric Exam Psychiatric exam: Anxious, Normal Affect, Normal Mood - Skin Skin Exam: Intact, Normal Color, Warm Results - Vital Signs Recent Vital Signs: Last Vital Signs Temp 97.8 F 04/22/17 15:52 Pulse 93 H 04/22/17 15:52 Resp 20 04/22/17 15:52 BP 111/77 04/22/17 15:52 Pulse Ox 96 04/22/17 15:52 - Labs Result Diagrams: 04/22/17 16:15 04/22/17 16:15 Assessment & Plan - Assessment and Plan (Free Text) Assessment: 62 year old male PMHx CHF with EF 27% s/p AICD placed Feb 21, 2017, CAD, Afib, HTN, prostate ca s/p radiation, hydrocele presents to the ED for evaluation after his pacemaker went off in the AM on the day of admission Plan: AICD discharge - admit to telemetry observation - First set of trops negative x 1, will trend - AICD was placed Feb 21, 2017 - EKG reviewed - Cardiology Dr. Valenzuela consulted Atrial Fibrillation - INR 2.49 - continue to monitor levels, currently on 1 mg coumadin but was found to be supratherapeutic on last admission 04/06/17 CHF with EF 27% - proBNP 661 - Echo July 2016 reviewed, echo re-ordered - continue home medications: Coreg 25mg po bid, Lisinopril 20mg po qdaily, Spironolactone 25mg po qdaily, furosemide 20 mg 2x per week (last taken 04/21) - monitor I&O Hx of CAD - Lipitor 10mg po qdaily - Lipid panel - HgA1c Hx of HTN - continue home medications: Coreg 25mg po bid, Lisinopril 10mg po qdaily Hx of low vitamin D - continue Vitamin D 1000iu po qdaily Hx of Prostate ca s/p radiation - no intervention needed at this time GI ppx: Pepcid 20mg po bid DVT ppx: SCDs Diet: heart healthy <Padmini Jhaveri - Last Filed: 04/23/17 10:20> Results - Vital Signs Recent Vital Signs: Last Vital Signs Temp 97.7 F 04/23/17 06:00 Pulse 69 04/23/17 06:00 Resp 19 04/23/17 06:00 BP 121/61 04/23/17 06:00 Pulse Ox 96 04/23/17 06:00 - Labs Result Diagrams: 04/23/17 06:00 04/23/17 06:00 Labs: Laboratory Results - last 24 hr 04/22/17 04/22/17 04/23/17 19:15 22:15 06:00 WBC 8.2 RBC 4.53 Hgb 13.1 L Hct 39.3 L MCV 86.8 MCH 28.9 MCHC 33.3 RDW 13.9 Plt Count 167 MPV 9.9 Gran % 71.5 H Lymph % (Auto) 20.4 L [place] % (Auto) 6.4 H Eos % (Auto) 1.5 Baso % (Auto) 0.2 Gran # 5.88 Lymph # 1.7 [place] # 0.5 Eos # 0.1 Baso # 0.02 Sodium Potassium Chloride Carbon Dioxide Anion Gap BUN Creatinine Est GFR ( Amer) Est GFR (Non-Af Amer) Random Glucose Calcium Magnesium Total Bilirubin AST ALT Alkaline Phosphatase Troponin I 0.02 D Total Protein Albumin Globulin Albumin/Globulin Ratio Triglycerides Cholesterol LDL Cholesterol Direct HDL Cholesterol Urine Color Yellow Urine Appearance Clear Urine pH 6.0 Ur Specific [place] 1.025 Urine Protein Negative Urine Glucose (UA) Negative Urine Ketones Trace H Urine Blood Negative Urine Nitrate Negative Urine Bilirubin Negative Urine Urobilinogen 0.2 Ur Leukocyte Esterase Negative 04/23/17 04/23/17 06:00 06:00 WBC RBC Hgb Hct MCV MCH MCHC RDW Plt Count MPV Gran % Lymph % (Auto) [place] % (Auto) Eos % (Auto) Baso % (Auto) Gran # Lymph # [place] # Eos # Baso # Sodium 138 Potassium 4.6 Chloride 103 Carbon Dioxide 27 Anion Gap 13 BUN 12 Creatinine 0.8 Est GFR ( Amer) > 60 Est GFR (Non-Af Amer) > 60 Random Glucose 103 Calcium 9.1 Magnesium 1.7 Total Bilirubin 1.2 AST 21 ALT 35 Alkaline Phosphatase 60 Troponin I Total Protein 7.0 Albumin 3.9 Globulin 3.1 Albumin/Globulin Ratio 1.3 Triglycerides 108 Cholesterol 132 LDL Cholesterol Direct 68 HDL Cholesterol 45 Urine Color Urine Appearance Urine pH Ur Specific [place] Urine Protein Urine Glucose (UA) Urine Ketones Urine Blood Urine Nitrate Urine Bilirubin Urine Urobilinogen Ur Leukocyte Esterase Attending/Attestation - Attestation I have personally seen and examined this patient.: Yes I have fully participated in the care of the patient.: Yes I have reviewed all pertinent clinical information: Yes Notes (Text): I have seen and examined the patient at bedside. Agree with the above note with the following additions/ exceptions: Briefly this is 62 year old male with history of PA, atrial fibrillation on coumadin, CMP (ef~26%)on AICD, prostate cancer s/p RT who came for evaluation s/p AICD firing. Patient was anxious and was walking very fast when this happened. His AICD was interrogated and their sales training representative informed us that patient was in afib with HR 200 at the time of AICD firing. Currently denies any complaints. Will discuss with Dr Valenzuela and will optimize his medications. Will repeat echo. Continue other medications. Upon discharge patient will follow up with Dr Flores and Dr Juan Jose Walker. Dr Padmini Jhaveri.
--- NOTE | 2017-04-22 18:33 | RAD ---
HISTORY: chest pain/palpitation COMPARISON: Comparison is made with 04/06/2017 FINDINGS: LUNGS: No active pulmonary disease. PLEURA: No significant pleural effusion identified, no pneumothorax apparent. CARDIOVASCULAR: Mild cardiomegaly is again noted. Left-sided pacemaker is seen in place. OSSEOUS STRUCTURES: No significant abnormalities. VISUALIZED UPPER ABDOMEN: Normal. OTHER FINDINGS: None. IMPRESSION: No active disease.
[2017-04-22 19:37] LABS: URINE BILIRUBIN NEGATIVE (NEGATIVE); URINE BLOOD NEGATIVE (NEGATIVE); URINE GLUCOSE (UA) NEGATIVE (NEGATIVE); URINE LEUKOCYTE ESTERASE NEGATIVE Leu/uL (NEGATIVE); URINE NITRATE NEGATIVE (NEGATIVE); URINE PROTEIN NEGATIVE mg/dL (<30 mg/dL); URINE UROBILINOGEN 0.2 E.U./dL (<1 E.U./dL)
[2017-04-22 19:38] LABS: URINE APPEARANCE CLEAR (CLEAR); URINE COLOR YELLOW (YELLOW)
--- NOTE | 2017-04-22 20:28 | CARD ---
APPROVED REPORT EKG Measurement Heart [id number] <Conclusion> Atrial sensed, Bi-ventricular paced rhythm Abnormal ECG
[2017-04-23 00:53] VITALS: BMI 35.5
[2017-04-23 06:59] LABS: BASO # 0.02 K/mm3 (0.0-2.0); BASO % 0.2 % (0.0-3.0); EOS # 0.1 (0.0-0.7); EOS % 1.5 % (1.5-5.0); GRAN # 5.88 (1.4-6.5); GRAN % 71.5 % (50.0-68.0); HEMOGLOBIN 13.1 g/dL (14.0-18.0); LYMPH # 1.7 (1.2-3.4); LYMPH % 20.4 % (22.0-35.0); MEAN CELL VOLUME 86.8 fl (80.0-105.0); MEAN CORPUSCULAR HEMOGLOBIN 28.9 pg (25.0-35.0); MEAN CORPUSCULAR HGB CONC 33.3 g/dl (31.0-37.0); MEAN PLATELET VOLUME 9.9 fl (7.0-11.0); MONO # 0.5 (0.1-0.6); MONO % 6.4 % (1.0-6.0); RBC 4.53 10^6/uL (3.5-6.1); RED CELL DISTRIBUTION WIDTH 13.9 % (11.5-14.5); WHITE BLOOD COUNT 8.2 10^3/ul (4.5-11.0)
[2017-04-23 07:12] LABS: ALB/GLOB RATIO 1.3 (1.1-1.8); ALBUMIN 3.9 g/dL (3.0-4.8); ALT/SGPT 35 U/L (7-56); AST/SGOT 21 U/L (17-59); BLOOD UREA NITROGEN 12 mg/dL (7-21); CALCIUM 9.1 mg/dL (8.4-10.5); GFR AFRICAN-AMERICAN > 60; GFR NON-AFRICAN AMERICAN > 60; HDL CHOLESTEROL 45 mg/dL (29-60)
[2017-04-23 07:18] LABS: LDL CHOLESTEROL 68 mg/dL (0-129)
[2017-04-23] MEDS ORDERED: Magnesium Sulfate 2 GM in Sodium Chloride 0.9% 100 ML IVPB ONE (09:42)
--- NOTE | 2017-04-23 10:47 | CP.PCM.PN ---
<Cristian Ortez - Last Filed: 04/23/17 10:44> Subjective - Date & Time of Evaluation Date of Evaluation: 04/23/17 Time of Evaluation: 10:44 - Subjective Subjective: Medicine Progress Note Pt seen and examined at bedside. No acute overnight events. Pt denies any further AICD firings. Pt denied CP, SOB, nausea, vomiting, diarrhea, fever, chills, SWENSON, or dizziness. Objective - Vital Signs/Intake and Output Vital Signs (last 24 hours): Temp Pulse Resp BP Pulse Ox 97.7 F 73 19 137/79 96 04/23/17 06:00 04/23/17 10:25 04/23/17 06:00 04/23/17 10:25 04/23/17 06:00 Intake and Output: 04/23/17 04/23/17 06:59 18:59 Intake Total 180 Output Total 250 Balance -70 - Medications Medications: Current Medications Atorvastatin Calcium (Lipitor) 10 mg PO DIN [facility] Last Admin: 04/22/17 18:48 Dose: 10 mg Carvedilol (Coreg) 50 mg PO BID [facility] Last Admin: 04/23/17 10:25 Dose: 50 mg Famotidine (Pepcid) 20 mg IVP DAILY [facility] Last Admin: 04/23/17 10:24 Dose: 20 mg Furosemide (Lasix) 20 mg PO 2XW [facility] Lisinopril (Zestril) 10 mg PO DAILY [facility] Last Admin: 04/23/17 10:24 Dose: 10 mg Spironolactone (Aldactone) 25 mg PO DAILY [facility] Last Admin: 04/23/17 10:24 Dose: 25 mg Warfarin Sodium (Coumadin) 1 mg PO 1800 [facility] PRN Reason: Protocol - Labs Labs: 04/23/17 06:00 04/23/17 06:00 PT 27.6 SECONDS (9.4-12.5) H 04/22/17 16:15 INR 2.49 (0.93-1.08) H 04/22/17 16:15 APTT 41.9 Seconds (25.1-36.5) H 04/22/17 16:15 - Constitutional Appears: No Acute Distress - Head Exam Head Exam: NORMAL INSPECTION - Eye Exam Eye Exam: Normal appearance - ENT Exam ENT Exam: Normal Exam - Respiratory Exam Respiratory Exam: Clear to Ausculation Bilateral. absent: Rales, Rhonchi, Wheezes - Cardiovascular Exam Cardiovascular Exam: RRR, +S1, +S2. absent: Gallop, Rubs, Murmur - GI/Abdominal Exam GI & Abdominal Exam: Soft. absent: Distended, Guarding, Tenderness, Mass, Rebound - Extremities Exam Extremities Exam: Normal Inspection - Back Exam Back Exam: NORMAL INSPECTION - Neurological Exam Neurological Exam: Alert, Awake, Oriented x3 - Psychiatric Exam Psychiatric exam: Normal Affect, Normal Mood - Skin Skin Exam: Dry, Intact, Normal Color, Warm Assessment and Plan - Assessment and Plan (Free Text) Assessment: 62 year old male PMHx CHF with EF 27% s/p AICD placed Feb 21, 2017, CAD, Afib, HTN, prostate ca s/p radiation, hydrocele presents to the ED for evaluation after his pacemaker went off in the AM on the day of admission. Plan: 1. AICD discharge - First set of trops negative x 2, will trend - AICD was placed Feb 21, 2017 - EKG reviewed - Cardiology Dr. Valenzuela consulted 2. Atrial Fibrillation - INR 2.49 on admission - Cont coumadin 3. Chronic CHF with reduced ejection fraction - BNP 661 - Echo (08/09) showed LVEF ~27% - F/u repeat Echo - Carvedilol increased to 50 mg PO BID - Cont: Lisinopril, Spironolactone, Lasix (last taken 04/21) - monitor I&O 4. Hx of CAD - Lipitor 10mg po qdaily - Lipid panel SNL - F/u HgA1c 5. Hx of HTN - Cont: Coreg, Lisinopril 6. Hx of low vitamin D - Cont Vitamin D 7. Hx of Prostate ca s/p radiation - No intervention needed at this time GI ppx: Pepcid 20mg po bid DVT ppx: SCDs Pt seen and discussed in detail with Dr. Jhaveri. Michael Ortez, PGY1 <Padmini Jhaveri - Last Filed: 04/23/17 15:03> Objective - Vital Signs/Intake and Output Vital Signs (last 24 hours): Temp Pulse Resp BP Pulse Ox 97.9 F 65 16 110/62 96 04/23/17 12:00 04/23/17 12:00 04/23/17 12:00 04/23/17 12:04/23/17 06:00 - Medications Medications: Current Medications Atorvastatin Calcium (Lipitor) 10 mg PO DIN [facility] Last Admin: 04/22/17 18:48 Dose: 10 mg Carvedilol (Coreg) 50 mg PO BID [facility] Last Admin: 04/23/17 10:25 Dose: 50 mg Famotidine (Pepcid) 20 mg IVP DAILY [facility] Last Admin: 04/23/17 10:24 Dose: 20 mg Furosemide (Lasix) 20 mg PO 2XW [facility] Lisinopril (Zestril) 10 mg PO DAILY [facility] Last Admin: 04/23/17 10:24 Dose: 10 mg Spironolactone (Aldactone) 25 mg PO DAILY [facility] Last Admin: 04/23/17 10:24 Dose: 25 mg Warfarin Sodium (Coumadin) 1 mg PO 1800 [facility] PRN Reason: Protocol - Labs Labs: PT 27.6 SECONDS (9.4-12.5) H 04/22/17 16:15 INR 2.49 (0.93-1.08) H 04/22/17 16:15 APTT 41.9 Seconds (25.1-36.5) H 04/22/17 16:15 Attending/Attestation - Attestation I have personally seen and examined this patient.: Yes I have fully participated in the care of the patient.: Yes I have reviewed all pertinent clinical information, including history, physical exam and plan: Yes Notes (Text): I have seen and examined the patient at bedside. Agree with the above note with the following additions/ exceptions: Briefly this is 62 year old male with history of [place], atrial fibrillation on coumadin, CMP (ef~26%)on AICD, prostate cancer s/p RT who came for evaluation s/p AICD firing. Patient was anxious and was walking very fast when this happened. His AICD was interrogated and their residential sales representative informed us that patient was in afib with HR 200 at the time of AICD firing. Currently denies any complaints. Discussed with Dr Valenzuela. We will increase coreg to 50 bid. Mag was also given. Echo result pending. Continue other medications. Upon discharge patient will follow up with Dr Flores and Dr Juan Jose Walker. Dr Padmini Jhaveri
--- NOTE | 2017-04-23 12:48 | CON ---
CARDIOLOGY CONSULTATION DATE: 04/23/2017 HISTORY: The patient is a 62-year-old male who presented to the emergency room after his defibrillator fired. Interrogation of the defibrillator in the emergency room revealed two episodes of ventricular tachycardia at a heart rate of 160s. PAST MEDICAL HISTORY: The patient's past medical history is notable for documented nonischemic cardiomyopathy. He had the defibrillator/pacemaker placed in 01/2017 in [facility]. He is followed by his stage manager and tar chaser in [place]. The patient suffers from chronic atrial fibrillation in which he is predominately paced. He had 2 cardiac catheterization according to the patient which revealed no significant coronary disease. He denies shortness of breath. Denies chest pain. SOCIAL HISTORY: He does not smoke. REVIEW OF SYSTEMS: Was reviewed in detail. No cardiac symptomatology is noted. PHYSICAL EXAMINATION: VITAL SIGNS : Blood pressure is 121/61, heart rate is in the 60s, paced rhythm. NECK: Negative JVD. LUNGS: Without rales. HEART: S1, S2. EXTREMITIES: Without edema. LABORATORY DATA: EKG shows a paced rhythm. The troponins are negative x2. Coagulation shows an INR of 2.49. The hemoglobin is 13. IMPRESSION: 1. Status post episode of ventricular tachycardia with defibrillator firing. 2. Borderline hypomagnesemia. 3. Dilated cardiomyopathy. 4. Chronic atrial fibrillation treated with Coreg as well as Coumadin. PLAN: Given these findings, we will replace his magnesium, we will increase his Coreg to 50 mg b.i.d. We will monitor on telemetry for 24 hours. Khang Valenzuela MD
--- NOTE | 2017-04-23 14:41 | CARD ---
APPROVED REPORT EXAM: Two-dimensional and M-mode echocardiogram with Doppler and color Doppler. INDICATION VALVULAR EVALUATION 2D DIMENSIONS Left Atrium (2D)4.3 (1.6-4.0cm)IVSd1.0 (0.7-1.1cm) LVDd5.3 (3.9-5.9cm)PWd1.2 (0.7-1.1cm) LVDs4.5 (2.5-4.0cm)FS (%) 15.2 % LVEF (%)32.1 (>50%) M-Mode DIMENSIONS Aortic Root3.60 (2.2-3.7cm)Aortic Cusp Exc.1.60 (1.5-2.0cm) Aortic Valve AoV Peak Uawamgcf139.0cm/sAoV VTI43.9cmAO Peak GR.17mmHg LVOT Peak Hbrxiwku079.0cm/sLVOT VTI29.20cmAO Mean GR.10mmHg Mitral Valve MV E Snxgalsl911.0cm/sMV A Evdenrsc54.3cm/sE/A ratio1.2 TDI Lateral E' Peak V7.11cm/sMedial E' Peak V7.21cm/sE/Lateral E'15.0 E/Medial E'14.8 Pulmonary Valve PV Peak Grmlsobs48.3cm/sPV Peak Grad.3mmHg Tricuspid Valve TR Peak Zvbseubr228zp/sRAP HGTPEBPW60onYeKG Peak Gr.43mmHg [id number] LEFT VENTRICLE The left ventricle is normal size. There is normal left ventricular wall thickness. The systolic function is severely impaired. There is global hypokinesis of the left ventricle. Transmitral Doppler flow pattern is Grade II-pseudonormal filling dynamics. The left ventricular apex is not well visualized. RIGHT VENTRICLE The right ventricle is mildly dilated. There is normal right ventricular wall thickness. The right ventricular systolic function is normal. There is a pacemaker lead in the right ventricle. ATRIA The left atrium is mildly dilated. The right atrium is mildly dilated. AORTIC VALVE The aortic valve is mildly thickened. No aortic regurgitation is present. There is trace valvular aortic stenosis. MITRAL VALVE The mitral valve is mildly thickened. Mitral regurgitation is mild. TRICUSPID VALVE There is moderate pulmonary hypertension. GREAT VESSELS The aortic root is normal in size. PERICARDIAL EFFUSION There is a trace loculated anterior pericardial effusion. <Conclusion> The left ventricle is normal size. There is normal left ventricular wall thickness. The systolic function is severely impaired. There is global hypokinesis of the left ventricle. Transmitral Doppler flow pattern is Grade II-pseudonormal filling dynamics. Mitral regurgitation is mild. There is moderate pulmonary hypertension.
[2017-04-24 02:33] VITALS: TEMP 97.7
[2017-04-24 06:18] VITALS: RESP 18; O2SAT 100
[2017-04-24 09:10] LABS: BLOOD UREA NITROGEN 11 mg/dL (7-21); GFR AFRICAN-AMERICAN > 60; GFR NON-AFRICAN AMERICAN > 60
[2017-04-24 09:14] LABS: HEMOGLOBIN 14.2 g/dL (14.0-18.0); MEAN CELL VOLUME 86.8 fl (80.0-105.0); MEAN CORPUSCULAR HEMOGLOBIN 29.6 pg (25.0-35.0); MEAN CORPUSCULAR HGB CONC 34.1 g/dl (31.0-37.0); RBC 4.79 10^6/uL (3.5-6.1); RED CELL DISTRIBUTION WIDTH 13.9 % (11.5-14.5); WHITE BLOOD COUNT 6.9 10^3/ul (4.5-11.0)
[2017-04-24] MEDS ORDERED: Magnesium Sulfate 2 GM in Sodium Chloride 0.9% 100 ML IVPB ONE (09:42)
[2017-04-24 10:39] VITALS: BP 121/70; PULSE 75
--- NOTE | 2017-04-24 12:28 | PN ---
DATE: 04/24/2017 CARDIOLOGY FOLLOWUP NOTE SUBJECTIVE: The patient is feeling well. No shortness of breath. No chest pain. OBJECTIVE: VITAL SIGNS: Blood pressure is 114/74 with heart rate in the 60s, paced rhythm. NECK: Negative JVD. LUNGS: Without rales. HEART: S1 and S2. EXTREMITIES: Without edema. LABORATORY DATA: Hemoglobin is 14.2. Chemistries, troponins are negative x3, potassium is now 5.0. Magnesium is 1.7. IMPRESSION; 1. Status post ICD firing. 2. Dilated cardiomyopathy. 3. Chronic atrial fibrillation. 4. Chronic atrial fibrillation. PLAN: Given these findings, we will replace the potassium and magnesium. His beta-blockers have been increased due to his ICD firing with increased atrial fibrillation, heart rate. After another dose of IV magnesium, the patient can be discharged. Increased change in medications have been discussed with the patient in detail. He understands. He will follow up with his primary care doctor and gutter installer. Khang Valenzuela MD
--- NOTE | 2017-04-24 13:06 | CP.PCM.DIS ---
<Cristian Ortez - Last Filed: 04/24/17 12:48> Provider - Provider Date of Admission: 04/23/17 10:57 Attending physician: Padmini Jhaveri MD Primary care physician: Aaron Ingram MD Consults: Cardio: Nicolas Time Spent in preparation of Discharge (in minutes): 45 Hospital Course - Lab Results Lab Results: Most Recent Lab Values WBC 6.9 10^3/ul (4.5-11.0) 04/24/17 08:30 RBC 4.79 10^6/uL (3.5-6.1) 04/24/17 08:30 Hgb 14.2 g/dL (14.0-18.0) 04/24/17 08:30 Hct 41.6 % (42.0-52.0) L 04/24/17 08:30 MCV 86.8 fl (80.0-105.0) 04/24/17 08:30 MCH 29.6 pg (25.0-35.0) 04/24/17 08:30 MCHC 34.1 g/dl (31.0-37.0) 04/24/17 08:30 RDW 13.9 % (11.5-14.5) 04/24/17 08:30 Plt Count 174 10^3/uL (120.0-450.0) 04/24/17 08:30 MPV 10.0 fl (7.0-11.0) 04/24/17 08:30 Gran % 71.5 % (50.0-68.0) H 04/23/17 06:00 Lymph % (Auto) 20.4 % (22.0-35.0) L 04/23/17 06:00 Plumas % (Auto) 6.4 % (1.0-6.0) H 04/23/17 06:00 Eos % (Auto) 1.5 % (1.5-5.0) 04/23/17 06:00 Baso % (Auto) 0.2 % (0.0-3.0) 04/23/17 06:00 Gran # 5.88 (1.4-6.5) 04/23/17 06:00 Lymph # 1.7 (1.2-3.4) 04/23/17 06:00 Plumas # 0.5 (0.1-0.6) 04/23/17 06:00 Eos # 0.1 (0.0-0.7) 04/23/17 06:00 Baso # 0.02 K/mm3 (0.0-2.0) 04/23/17 06:00 PT 27.6 SECONDS (9.4-12.5) H 04/22/17 16:15 INR 2.49 (0.93-1.08) H 04/22/17 16:15 APTT 41.9 Seconds (25.1-36.5) H 04/22/17 16:15 Sodium 141 mmol/L (132-148) 04/24/17 08:30 Potassium 5.0 mmol/L (3.6-5.0) 04/24/17 08:30 Chloride 102 mmol/L (98-107) 04/24/17 08:30 Carbon Dioxide 27 mmol/L (21-33) 04/24/17 08:30 Anion Gap 17 (10-20) 04/24/17 08:30 BUN 11 mg/dL (7-21) 04/24/17 08:30 Creatinine 0.9 mg/dl (0.8-1.5) 04/24/17 08:30 Est GFR ( Amer) > 60 04/24/17 08:30 Est GFR (Non-Af Amer) > 60 04/24/17 08:30 Random Glucose 115 mg/dL (70-110) H 04/24/17 08:30 Hemoglobin A1c 6.0 % (4.2-6.5) 04/23/17 06:00 Calcium 10.0 mg/dL (8.4-10.5) 04/24/17 08:30 Magnesium 1.7 mg/dL (1.7-2.2) 04/23/17 06:00 Total Bilirubin 1.2 mg/dL (0.2-1.3) 04/23/17 06:00 AST 21 U/L (17-59) 04/23/17 06:00 ALT 35 U/L (7-56) 04/23/17 06:00 Alkaline Phosphatase 60 U/L (38-126) 04/23/17 06:00 Lactate Dehydrogenase 519 U/L (333-699) 04/22/17 16:15 Total Creatine Kinase 91 U/L (35-230) 04/22/17 16:15 Troponin I < 0.01 ng/mL D 04/23/17 07:00 NT-Pro-B Natriuret Pep 661 pg/mL (0-450) H 04/22/17 16:15 Total Protein 7.0 g/dL (5.8-8.3) 04/23/17 06:00 Albumin 3.9 g/dL (3.0-4.8) 04/23/17 06:00 Globulin 3.1 gm/dL 04/23/17 06:00 Albumin/Globulin Ratio 1.3 (1.1-1.8) 04/23/17 06:00 Triglycerides 108 mg/dL (35-160) 04/23/17 06:00 Cholesterol 132 mg/dL (130-200) 04/23/17 06:00 LDL Cholesterol Direct 68 mg/dL (0-129) 04/23/17 06:00 HDL Cholesterol 45 mg/dL (29-60) 04/23/17 06:00 Urine Color Yellow (YELLOW) 04/22/17 19:15 Urine Appearance Clear (CLEAR) 04/22/17 19:15 Urine pH 6.0 (4.7-8.0) 04/22/17 19:15 Ur Specific Leroy 1.025 (1.005-1.035) 04/22/17 19:15 Urine Protein Negative mg/dL (<30 mg/dL) 04/22/17 19:15 Urine Glucose (UA) Negative mg/dL (NEGATIVE) 04/22/17 19:15 Urine Ketones Trace mg/dL (NEGATIVE) H 04/22/17 19:15 Urine Blood Negative (NEGATIVE) 04/22/17 19:15 Urine Nitrate Negative (NEGATIVE) 04/22/17 19:15 Urine Bilirubin Negative (NEGATIVE) 04/22/17 19:15 Urine Urobilinogen 0.2 E.U./dL (<1 E.U./dL) 04/22/17 19:15 Ur Leukocyte Esterase Negative Taryn/uL (NEGATIVE) 04/22/17 19:15 Digoxin < 0.4 ng/mL (0.8-2.0) L 04/22/17 16:15 - Hospital Course Hospital Course: Patient is a 62 year old male with a past medical history of [place] '14, atrial fibrillation, cardiomyopathy s/p AICD 03/24/17, and prostate cancer for which 44 treatments of radiation were received who presents to the ED with complaints of his AICD discharging. To note patient was recently admitted due to his AICD being triggered on 04/06/17; episode at the time was again triggered due to stress. Patient stated he was at the store when he realized he couldn't find his marrero. As a result he rushed back home to see if he left the marrero at his house , unable to find his marrero he rushed back to the store which is when his AICD discharged at 3:27 p.m. Patient stated that he tends to get himself worked up and stressed and this as a result causes him to get anxious which increases his heart rate. [facility] states patient was in atrial fibrillation at 3 :27 with a rate of 200 which is when the AICD discharged. Pt admitted for evaulation and treatment for AICD discharge. During hospital course, cardiology was consulted. AICD discharge was likely 2/2 to a-fib with RVR 2/2 to anxiety. Thus, cardiology increased Coreg to 50 BID. IV mag was also given. Echo was ordered and showed EF of 32.1%, which is improved from echo performed on 07/2016 (~27%). Patient was monitored overnight due to new medications, in which he tolerated well. Today, patient was seen and examined at bedside. Pt denied acute overnight events. As patient was medically stable and cleared by cardiology, he was discharged. Pt was given Rx for Carvedilol and advised to continue his other home medications as prescribed. He will follow up with his PMD and heel seat flap stapler within 1 week. Discharge Diagnosis 1. AICD discharge 2. Atrial Fibrillation 3. Chronic CHF with reduced ejection fraction 4. Hx of CAD 5. Hx of HTN 6. Hx of low vitamin D 7. Hx of Prostate ca s/p radiation Discharge Medications - Carvedilol 50 mg PO BID Discharge Exam - Head Exam Head Exam: NORMAL INSPECTION - Eye Exam Eye Exam: Normal appearance - ENT Exam ENT Exam: Normal Exam - Neck Exam Neck exam: Normal Inspection - Respiratory Exam Respiratory Exam: Clear to PA & Lateral. absent: Rales, Rhonchi, Wheezes, Respiratory Distress - Cardiovascular Exam Cardiovascular Exam: RRR, +S1, +S2. absent: Diastolic murmur, Gallop, Rubs, Systolic Murmur - GI/Abdominal Exam GI & Abdominal Exam: Soft. absent: Distended, Guarding, Rebound, Tenderness - Extremities Exam Extremities exam: normal inspection - Back Exam Back exam: NORMAL INSPECTION - Neurological Exam Neurological exam: Alert, Oriented x3 - Psychiatric Exam Psychiatric exam: Normal Affect, Normal Mood - Skin Skin Exam: Dry, Intact, Normal Color, Warm Discharge Plan - Discharge Medications Prescriptions: Carvedilol [Coreg] 50 mg PO BID #30 tab - Follow Up Plan Condition: STABLE Disposition: HOME/ ROUTINE Instructions: Chest Pain (DC), Hypomagnesemia (DC) Additional Instructions: 1. Follow up with PMD within 1 week 2. Follow up with Casing Wringer Operator as scheduled 3. Carvedilol dose increased, take as prescribed 4. Resume other home medications as prescribed 5. Increase intake of foods high in magnesium as recommended by qa automation developer or take OTC magnesium supplements 6. Return to ED if symptoms wrosen Referrals: Aaron Ingram MD [Primary Care Provider] - <Padmini Jhaveri - Last Filed: 04/24/17 13:51> Provider - Provider Date of Admission: 04/23/17 10:57 Attending physician: Padmini Jhaveri MD Primary care physician: Aaron Ingram MD Hospital Course - Lab Results Lab Results: Most Recent Lab Values WBC 6.9 10^3/ul (4.5-11.0) 04/24/17 08:30 RBC 4.79 10^6/uL (3.5-6.1) 04/24/17 08:30 Hgb 14.2 g/dL (14.0-18.0) 04/24/17 08:30 Hct 41.6 % (42.0-52.0) L 04/24/17 08:30 MCV 86.8 fl (80.0-105.0) 04/24/17 08:30 MCH 29.6 pg (25.0-35.0) 04/24/17 08:30 MCHC 34.1 g/dl (31.0-37.0) 04/24/17 08:30 RDW 13.9 % (11.5-14.5) 04/24/17 08:30 Plt Count 174 10^3/uL (120.0-450.0) 04/24/17 08:30 MPV 10.0 fl (7.0-11.0) 04/24/17 08:30 Gran % 71.5 % (50.0-68.0) H 04/23/17 06:00 Lymph % (Auto) 20.4 % (22.0-35.0) L 04/23/17 06:00 Plumas % (Auto) 6.4 % (1.0-6.0) H 04/23/17 06:00 Eos % (Auto) 1.5 % (1.5-5.0) 04/23/17 06:00 Baso % (Auto) 0.2 % (0.0-3.0) 04/23/17 06:00 Gran # 5.88 (1.4-6.5) 04/23/17 06:00 Lymph # 1.7 (1.2-3.4) 04/23/17 06:00 Plumas # 0.5 (0.1-0.6) 04/23/17 06:00 Eos # 0.1 (0.0-0.7) 04/23/17 06:00 Baso # 0.02 K/mm3 (0.0-2.0) 04/23/17 06:00 PT 27.6 SECONDS (9.4-12.5) H 04/22/17 16:15 INR 2.49 (0.93-1.08) H 04/22/17 16:15 APTT 41.9 Seconds (25.1-36.5) H 04/22/17 16:15 Sodium 141 mmol/L (132-148) 04/24/17 08:30 Potassium 5.0 mmol/L (3.6-5.0) 04/24/17 08:30 Chloride 102 mmol/L (98-107) 04/24/17 08:30 Carbon Dioxide 27 mmol/L (21-33) 04/24/17 08:30 Anion Gap 17 (10-20) 04/24/17 08:30 BUN 11 mg/dL (7-21) 04/24/17 08:30 Creatinine 0.9 mg/dl (0.8-1.5) 04/24/17 08:30 Est GFR ( Amer) > 60 04/24/17 08:30 Est GFR (Non-Af Amer) > 60 04/24/17 08:30 Random Glucose 115 mg/dL (70-110) H 04/24/17 08:30 Hemoglobin A1c 6.0 % (4.2-6.5) 04/23/17 06:00 Calcium 10.0 mg/dL (8.4-10.5) 04/24/17 08:30 Magnesium 1.7 mg/dL (1.7-2.2) 04/23/17 06:00 Total Bilirubin 1.2 mg/dL (0.2-1.3) 04/23/17 06:00 AST 21 U/L (17-59) 04/23/17 06:00 ALT 35 U/L (7-56) 04/23/17 06:00 Alkaline Phosphatase 60 U/L (38-126) 04/23/17 06:00 Lactate Dehydrogenase 519 U/L (333-699) 04/22/17 16:15 Total Creatine Kinase 91 U/L (35-230) 04/22/17 16:15 Troponin I < 0.01 ng/mL D 04/23/17 07:00 NT-Pro-B Natriuret Pep 661 pg/mL (0-450) H 04/22/17 16:15 Total Protein 7.0 g/dL (5.8-8.3) 04/23/17 06:00 Albumin 3.9 g/dL (3.0-4.8) 04/23/17 06:00 Globulin 3.1 gm/dL 04/23/17 06:00 Albumin/Globulin Ratio 1.3 (1.1-1.8) 04/23/17 06:00 Triglycerides 108 mg/dL (35-160) 04/23/17 06:00 Cholesterol 132 mg/dL (130-200) 04/23/17 06:00 LDL Cholesterol Direct 68 mg/dL (0-129) 04/23/17 06:00 HDL Cholesterol 45 mg/dL (29-60) 04/23/17 06:00 Urine Color Yellow (YELLOW) 04/22/17 19:15 Urine Appearance Clear (CLEAR) 04/22/17 19:15 Urine pH 6.0 (4.7-8.0) 04/22/17 19:15 Ur Specific Leroy 1.025 (1.005-1.035) 04/22/17 19:15 Urine Protein Negative mg/dL (<30 mg/dL) 04/22/17 19:15 Urine Glucose (UA) Negative mg/dL (NEGATIVE) 04/22/17 19:15 Urine Ketones Trace mg/dL (NEGATIVE) H 04/22/17 19:15 Urine Blood Negative (NEGATIVE) 04/22/17 19:15 Urine Nitrate Negative (NEGATIVE) 04/22/17 19:15 Urine Bilirubin Negative (NEGATIVE) 04/22/17 19:15 Urine Urobilinogen 0.2 E.U./dL (<1 E.U./dL) 04/22/17 19:15 Ur Leukocyte Esterase Negative Taryn/uL (NEGATIVE) 04/22/17 19:15 Digoxin < 0.4 ng/mL (0.8-2.0) L 04/22/17 16:15 Attending/Attestation - Attestation I have personally seen and examined this patient.: Yes I have fully participated in the care of the patient.: Yes I have reviewed all pertinent clinical information, including history, physical exam and plan: Yes Notes (Text): I have seen and examined the patient at bedside. Agree with the above note with the following additions/ exceptions: Briefly this is 62 year old male with history of [place], atrial fibrillation on coumadin, CMP (ef~26%)on AICD, prostate cancer s/p RT who came for evaluation s/p AICD firing. Patient was anxious and was walking very fast when this happened. His AICD was interrogated and their product support representative informed us that patient was in afib with HR 200 at the time of AICD firing. Currently denies any complaints. Discussed with Dr Valenzuela. Coreg was increased to 50 bid and he was able to tolerate that. Magnesium was also supplemented. Echo result reviewed. EF is 32%. Continue other medications. Upon discharge patient will follow up with Dr Flores and Dr Juan Jose Walker. Dr Padmini Jhaveri
== END 2017-04-24 13:09 | disposition home or self-care (01) ==
LOC: ED 15:52 → ERH 17:15 → 2RSO 19:57 → OBSVTOIN 04-23 10:57 → INTOOBSV 04-23 10:57
PROVIDERS: ADMIT Hospitalist; ATTEND Hospitalist
DX: I48.2 Chronic atrial fibrillation (principal); I47.2 Ventricular tachycardia; F41.9 Anxiety disorder, unspecified; I42.0 Dilated cardiomyopathy; I11.0 Hypertensive heart disease with heart failure; I50.9 Heart failure, unspecified; I25.10 Atherosclerotic heart disease of native coronary artery without angina pectoris; I25.2 Old myocardial infarction; N43.3 Hydrocele, unspecified; Z79.01 Long term (current) use of anticoagulants; E83.42 Hypomagnesemia; Z95.810 Presence of automatic (implantable) cardiac defibrillator; Z85.46 Personal history of malignant neoplasm of prostate; Z92.3 Personal history of irradiation; Z87.01 Personal history of pneumonia (recurrent)
CPT/HCPCS: 36415; 71010; 80048; 80053; 80061; 80162; 81003; 82550; 83036; 83615; 83735; 83880; 84484; 85025; 85027; 85610; 85730; 93005; 93306; 96365; 96366; 96375; 96376; 99284; G0378; J3475